=== PATIENT | female | born 1960 | race African-American/Black ===

== ENCOUNTER 2018-12-16 09:55 | Outpatient (CLI) | payer MEDICARE ==
--- NOTE | 2018-12-16 12:00 | MMO ---
Bilateral MAMMO Bilat Screen [facility]E. CLINICAL HISTORY: Patient is 58 years old and is seen for screening. The patient has no family history of breast cancer. The patient has no personal history of cancer. VIEWS: The views performed were: bilateral craniocaudal with tomosynthesis; bilateral mediolateral oblique with tomosynthesis; and right exaggerated craniocaudal. FILMS COMPARED: The present examination has been compared to prior imaging studies performed at [facility] on 11/03/2014, 11/29/2015, 12/13/2016 and 12/15/2017. MAMMOGRAM FINDINGS: There are scattered fibroglandular densities. Finding 1: There are stable benign appearing calcifications seen in both breasts. Finding 2: There is an intramammary lymph node seen in the left breast. There are no suspicious masses, suspicious calcifications, or new areas of architectural distortion. IMPRESSION: THERE IS NO MAMMOGRAPHIC EVIDENCE OF MALIGNANCY. A ROUTINE FOLLOW-UP MAMMOGRAM IN 1 YEAR IS RECOMMENDED. THE RESULTS OF THIS EXAM WERE SENT TO THE PATIENT. ACR BI-RADS Category 2 - Benign finding MAMMOGRAPHY NOTE: 1. A negative mammogram report should not delay a biopsy if a dominant of clinically suspicious mass is present. 2. Approximately 10% to 15% of breast cancers are not detected by mammography. 3. Adenosis and dense breasts may obscure an underlying neoplasm.
== END 2018-12-16 09:56 | disposition home or self-care (01) ==
LOC: BICMAMMO 09:55 → MERGE 10:45
PROVIDERS: ATTEND Student in an Organized Health Care Education/Training Program
DX: Z12.31 Encounter for screening mammogram for malignant neoplasm of breast (principal)
CPT/HCPCS: 77063; 77067

== ENCOUNTER 2018-12-19 13:34 | Observation (INO) | payer MEDICARE ==
[2018-12-19] MEDS ORDERED: Acetaminophen 500 MG TAB ONE (13:59)
--- NOTE | 2018-12-19 14:45 | RAD ---
RADIOGRAPH CHEST 1 VIEW: DATE: 12/19/2018 HISTORY: 58-year-old female with chest pain FINDINGS: The thoracic aorta is tortuous and ectatic. There is no evidence of airspace density, pulmonary edema , or pneumothorax. The lateral costophrenic angles are not effaced. IMPRESSION: 1) No acute pulmonary findings. 2) ectasia of thoracic aorta.
[2018-12-19 14:49] LABS: #Basophils 0.1 thou/uL (0.0-0.2); #Eosinphils 0.2 thou/uL (0.0-0.7); #Lymphocytes 3.7 thou/uL (1.20-3.40); #Monocytes 0.7 thou/uL (0.11-0.59); #Neutrophils 7.3 thou/uL (1.40-6.50); %Basophils 0.5 % (0.0-1.0); %Eosinophils 1.6 % (0.0-10.0); %Lymphocytes 30.8 % (21.0-51.0); %Monocytes 5.6 % (0.0-10.0); %Neutrophils 61.6 % (42.0-75.0); Hemoglobin 15.1 g/dL (12.0-16.0); Mean Corpuscular HGB CONC 33.9 g/dL (32.0-36.0); Mean Corpuscular Volume 97.5 fL (78.0-98.0); Mean Platelet Volume 7.7 fL (7.4-10.4); Platelet Count 378 thou/uL (130-400); RBC Distribution Width 13.6 % (11.5-14.5); Red Blood Cell (RBC) Count 4.56 mill/uL (4.20-5.40); White Blood Cell (WBC) Count 11.9 thou/uL (4.8-10.8)
[2018-12-19 14:59] LABS: ALT (SGPT) 12 U/L (8-55); AST (SGOT) 16 U/L (5-34); Albumin 4.1 g/dL (3.5-5.0); Alkaline Phosphatase 73 U/L (40-150); Anion Gap 17 mmol/L (10-20); BUN (Urea Nitrogen) 20 mg/dL (9.8-20.1); Bilirubin, Total 0.9 mg/dL (0.2-1.2); Calc. Creatinine Clearance 0 mL/min (70-130); Calcium 9.7 mg/dL (7.8-10.44); Carbon Dioxide 27 mmol/L (22-29); Chloride 97 mmol/L (98-107); Estimated GFR-MDRD 47; Globulin 4.3 g/dL (2.4-3.5); Glucose 133 mg/dL (70-105); Potassium 3.2 mmol/L (3.5-5.1); Protein, Total 8.4 g/dL (6.0-8.3); Sodium 138 mmol/L (136-145)
[2018-12-19 15:20] LABS: CKMB 0.7 ng/mL (0-6.6)
[2018-12-19] MEDS ORDERED: Aspirin Chewable 81 MG TAB ONE (16:03)
[2018-12-19] MEDS ORDERED: Sodium Chloride 0.9% 100 ML ONE (16:04)
[2018-12-19] MEDS ORDERED: cefTRIAXone\\ROCEPHIN 1 GM VIAL ONE (16:04)
--- NOTE | 2018-12-19 16:18 | PDOC.FPRHP ---
- History of Present Illness Chief Complaint: Chest pain/Shortness of breath History of Present Illness: 58yo female with hx of HTN and HLD presents to the ED complaining of chest pain and shortness of breath. The patient stated that for the last week she has been suffering from a cough productive of clear mucus, chills, and sneezing. Yesterday she developed body aches, decreased appetite, and chest pain that was worse with coughs. She denies any sick contacts, fevers, or wheezing. Pt denies any history of cardiac disease but does believe she had an echo before to evaluate a murmur but does not recall when or what the results were. ED Course: WBC 11.9, Cr 1.39, Troponin 0.051 --> 0.033. BNP 101.7 1gm rocephin CXR no acute pulmonary process, ectasia of thoracic aorta EKG nml O2 sats of 91% on RA - Allergies/Adverse Reactions Allergies Allergy/AdvReac Type Severity Reaction Status Date / Time No Known Drug Allergies Allergy Verified 12/19/18 20:42 - Home Medications Medication Instructions Recorded Confirmed Type Hydrochlorothiazide 25 mg PO DAILY 12/19/18 12/19/18 History Losartan Potassium [Cozaar] 50 mg PO DAILY 12/19/18 12/19/18 History - History PMHx: HTN, HLD PSHx: Left ankle ORIF FHx: Maternal HTN Social: 30 pack year smoker, occasional alcohol, disabled, - Review of Systems General: reports: fever/chills, weight/appetite/sleep changes (decreased appetite) ENT: reports: other (sneezing) Respiratory: reports: cough, congestion, shortness of breath Cardiovascular: reports: chest pain (with coughing). denies: edema Gastrointestinal: denies: nausea, vomiting, diarrhea Skin: denies: rashes Musculoskeletal: reports: pain (diffuse myalgias) - Vital signs BP: 135/86 HR: 104 RR: 30 Tmax: 100.6 Pox: 91% on RA Wt: 102.6kg - Physical Exam Constitutional: NAD HEENT: normocephalic and atraumatic Neck: supple Chest: other (Tender to palpation of right chest wall) Heart: RRR, pulses present, no edema, other (3/6 holosystolic murmur) Lungs: no respiratory distress, no wheezing -Lungs: Rales in the upper lobes bilaterally, rhonci in lower randolph Abdomen: soft, non-tender, bowel sounds present Musculoskeletal: normal structure, normal tone Neurological: no focal deficit, CN II-XII intact Skin: no rash/lesions Psychiatric: normal mood and affect, good judgment and insight, intact recent and remote memory FMR H&P: Results - Labs Result Diagrams: 12/19/18 14:15 12/19/18 14:15 Lab results: WBC 11.9 thou/uL (4.8-10.8) H 12/19/18 14:15 Hgb 15.1 g/dL (12.0-16.0) 12/19/18 14:15 Hct 44.4 % (36.0-47.0) 12/19/18 14:15 MCV 97.5 fL (78.0-98.0) 12/19/18 14:15 Plt Count 378 thou/uL (130-400) 12/19/18 14:15 Neutrophils % 61.6 % (42.0-75.0) 12/19/18 14:15 Sodium 138 mmol/L (136-145) 12/19/18 14:15 Potassium 3.2 mmol/L (3.5-5.1) L 12/19/18 14:15 Chloride 97 mmol/L (98-107) L 12/19/18 14:15 Carbon Dioxide 27 mmol/L (22-29) 12/19/18 14:15 BUN 20 mg/dL (9.8-20.1) 12/19/18 14:15 Creatinine 1.39 mg/dL (0.6-1.1) H 12/19/18 14:15 Glucose 133 mg/dL (70-105) H 12/19/18 14:15 Lactic Acid 1.1 mmol/L (0.5-2.2) 12/19/18 15:07 Calcium 9.7 mg/dL (7.8-10.44) 12/19/18 14:15 Total Bilirubin 0.9 mg/dL (0.2-1.2) 12/19/18 14:15 AST 16 U/L (5-34) 12/19/18 14:15 ALT 12 U/L (8-55) 12/19/18 14:15 Alkaline Phosphatase 73 U/L (40-150) 12/19/18 14:15 CK-MB (CK-2) 0.7 ng/mL (0-6.6) 12/19/18 14:15 B-Natriuretic Peptide 101.7 pg/mL (0-100) H 12/19/18 14:15 Serum Total Protein 8.4 g/dL (6.0-8.3) H 12/19/18 14:15 Albumin 4.1 g/dL (3.5-5.0) 12/19/18 14:15 - EKG Interpretation EKG: Sinus tachycardia, 104 bpm, normal axis, normal R wave progression, no acute ST or T wave changes - Radiology Interpretation Chest x-ray Status: report reviewed by me (No acute pulmonary findings. Ectasia of the thoracic aorta.) FMR H&P: A/P - Problem List (1) Acute respiratory failure with hypoxemia Current Visit: Yes Status: Acute Code(s): J96.01 - ACUTE RESPIRATORY FAILURE WITH HYPOXIA (2) Community acquired bacterial pneumonia Current Visit: Yes Status: Acute Code(s): J15.9 - UNSPECIFIED BACTERIAL PNEUMONIA (3) Atypical chest pain Current Visit: Yes Status: Acute Code(s): R07.89 - OTHER CHEST PAIN (4) Elevated troponin Current Visit: Yes Status: Acute Code(s): R74.8 - ABNORMAL LEVELS OF OTHER SERUM ENZYMES (5) Leukocytosis (leucocytosis) Current Visit: Yes Status: Acute Code(s): D72.829 - ELEVATED WHITE BLOOD CELL COUNT, UNSPECIFIED (6) Hypertension Current Visit: Yes Status: Acute Code(s): I10 - ESSENTIAL (PRIMARY) HYPERTENSION - Plan Acute hypoxic respiratory failure - 2/2 CAP 1 week of worsening productive cough and chills. O2 sat 91% on RA in ED. WBC of 11.9. - Abx: Azithromycin and Rocephin - PRN tylenol - Prednisone - PRN duonebs - Guiafenesin prn - LR @ 125 - Supplemental O2 to maintain >92% - Trend WBC, procalcitonin ordered Atypical Chest Pain Musculoskeletal vs ACS, elevated serial troponins, BNP 101.7, Hx of holosystolic murmur - Echo ordered for tomorrow - EKG if develops new chest pain - Nitro prn for CP - Telemetry and q4hr vitals Hypertension - Continue home meds Hypokalemia - Potassium 3.2 - Supplement 40 KCl - Trend BMP VTE prophylaxis: enoxaparin 30mg daily Disposition/LOS: Admit: Tele obs Expect LOS: <48hr FMR H&P: Upper Level - Pertinent history 58 yo F w/ PMH of HTN and HLD presents for evalutation of one week history of worsening cough, chills, and increasing SOB. Pt also reports rt sided chest pain over last 24 hours that is worse with deep breaths and coughing. She denies hemoptysis. Denies palpitations. Denies NVDC, diaphoresis. In the ED pts cxr showed NAD; however, she was found to be satting in low 90s on RA with a white count and incidentally elevated troponins. She was given 1LNS and 1gm rocephin. EKG showed sinus tachycardia. - Pertinent findings ROS: Pt reports chills, increasing SOB and productive cough over last week. Rt sided CP. Chills. SOB + BRADY. Otherwise agree with above ROS. PE: Gen: NAD pt resting in bed HEENT: NCAT, PERRLA, EOMI CV: RRR No MRG Respiratory: Scattered crackles and some expiratory wheezes, poor air entry Abd: Soft NTND bsx4 Neuro: No focal deficit Tmax: 100.6 WBC: 11.9 O2 sat: 91 RA RR: 30 - Plan Date/Time: 12/19/18 1617 IRoderick DO, have evaluated this patient and agree with findings/ plan as outlined by sport intern resident. Pertinent changes/additions are listed here. 1) Atypical chest pain: - given history of cough and chills this is likely MSK from strain vs pleurisy - pt had fever on presentation and was SOB + tachycardia - will admit to tele obs trend trops and check echo as pt had elevated BNP as well - cont gentle IVF - intial trop elevated, repeat downtrending 2) CAP: - elevated WBC, tachypnea and fever. - given no focal findings on CXR possible atypical pneumonia - Procal pending - consider repeat am cxr after IVF resuscitation - trend CBC - cont rocephin + azithromycin - wean O2 as tolerated 3) LINDA vs CKD - cont IVF resuscitation - trend 4) HTN: - home meds as BP tolerates 5) HLD: - home meds 6) Hypokalemia: - replace and check Mag Dispo: Stable. Will admit to tele obs and trend trops. From respiratory standpoint pt ok for dc with oral abx. Await echo results.
[2018-12-19] MEDS ORDERED: Azithromycin 500 MG VIAL ONE (16:50)
[2018-12-19 17:59] VITALS: BMI 38.8
[2018-12-19] MEDS ORDERED: Calcium Carbonate 500 MG ChewTAB PO PRN (18:06)
[2018-12-19] MEDS ORDERED: Ondansetron PF 4 MG/2 ML Vial IVP PRN (18:06)
[2018-12-19] MEDS ORDERED: Acetaminophen 325 MG TAB PO PRN (18:06)
[2018-12-19] MEDS ORDERED: Guaifenesin DM 100-10/5 ML UDCUP PO PRN (18:06)
[2018-12-19] MEDS ORDERED: Albuterol Sulfate 1.25 MG/3 ML NEB NEB PRN (18:06)
[2018-12-19] MEDS ORDERED: Ondansetron ODT 4 MG TAB PO PRN (18:06)
[2018-12-19] MEDS ORDERED: predniSONE 20 MG TAB PO SCH (18:06)
[2018-12-19 18:13] LABS: Troponin I 0.033 ng/mL (< 0.028)
--- NOTE | 2018-12-19 20:22 | HP ---
I have examined the patient. I have discussed the case with Dr. Joshua Serna and agreed with his assessment and plan. HISTORY OF PRESENT ILLNESS: Briefly, Ms. Craig is a pleasant 58-year-old black female, who has smoked at least a half a pack of cigarettes per day since the age of 12. She started becoming ill on Friday when she developed a slight cough, unassociated with fever, but some chills. This got progressively worse to the point that she was short of breath by the time she presented to the ER on Friday. She was subsequently admitted for further evaluation of her problem. PHYSICAL EXAMINATION: VITAL SIGNS: She was afebrile with a blood pressure of 132/78, respirations were 22, pulse ox on 2 L was 95%. GENERAL: She is pleasant, awake, and alert, but appears slightly short of breath and does complain of dyspnea. EAR, NOSE, AND THROAT: No erythema or exudate. NECK: Supple. CARDIAC: Heart rhythm is regular. No gallop or murmur noted. LUNGS: There were moist rales heard best in the posterior lung randolph bilaterally. She is not using accessory muscles of respiration, but does appear short of breath. CARDIAC: Her heart rhythm is regular without gallop or murmur. ABDOMEN: Flat and soft. No guarding, rebound, or rigidity. NEUROLOGIC: No focal deficits. EXTREMITIES: No edema. LABORATORY DATA: CBC; white count slightly elevated at 11,900. Her hemoglobin was 15.1, hematocrit 44.4 with an MCV of 97. Her chemistries; sodium is 138, potassium 3.2, chloride 97, bicarb 27, BUN 20, creatinine 1.39, glucose is 133. Liver enzymes are normal. Her troponin is elevated at 0.051, keeping her in the indeterminate range. Chest x-ray shows no acute pulmonary findings. Specifically, there is no evidence of airspace density, pulmonary edema, or pneumothorax. ASSESSMENT: Probable community-acquired pneumonia, likely atypical. PLAN: We will admit the patient, trend her troponins, begin antibiotics and breathing treatments. Job ID: [id number]
[2018-12-19] MEDS ORDERED: Potassium Chloride 20 MEQ TAB PO SCH (20:30)
[2018-12-19] MEDS: Lactated Ringer's 1,000 ML IV SCH (21:03)
[2018-12-20 05:15] LABS: #Lymphocytes 1.2 thou/uL (1.20-3.40); #Monocytes 0.2 thou/uL (0.11-0.59); #Neutrophils 7.8 thou/uL (1.40-6.50); %Eosinophils 0.1 % (0.0-10.0); %Lymphocytes 13.2 % (21.0-51.0); %Monocytes 2.3 % (0.0-10.0); %Neutrophils 84.5 % (42.0-75.0); Hemoglobin 14.2 g/dL (12.0-16.0); Mean Corpuscular HGB CONC 33.8 g/dL (32.0-36.0); Mean Corpuscular Hemoglobin 33.5 pg (27.0-31.0); Mean Corpuscular Volume 99.1 fL (78.0-98.0); Mean Platelet Volume 7.6 fL (7.4-10.4); Platelet Count 350 thou/uL (130-400); RBC Distribution Width 13.7 % (11.5-14.5); Red Blood Cell (RBC) Count 4.22 mill/uL (4.20-5.40); White Blood Cell (WBC) Count 9.2 thou/uL (4.8-10.8)
[2018-12-20] MEDS: Lactated Ringer's 1,000 ML IV SCH ×2 (05:20→16:24)
[2018-12-20 05:34] LABS: Anion Gap 13 mmol/L (10-20); BUN (Urea Nitrogen) 17 mg/dL (9.8-20.1); Calc. Creatinine Clearance 91 mL/min (70-130); Calcium 9.1 mg/dL (7.8-10.44); Carbon Dioxide 27 mmol/L (22-29); Chloride 102 mmol/L (98-107); Estimated GFR-MDRD 62; Glucose 174 mg/dL (70-105); Magnesium 1.4 mg/dL (1.6-2.6); Potassium 4.1 mmol/L (3.5-5.1); Sodium 138 mmol/L (136-145)
--- NOTE | 2018-12-20 06:08 | PDOC.FM ---
- Subjective Subjective: Ms. Girish Craig remains with some dyspnea, cough, and pleuritic chest pain. She smokes 3/4 ppd. - Objective Vital Signs & Weight: Vital Signs (12 hours) Temp Pulse Resp BP BP Pulse Ox 12/20/18 04:12 98.5 F 83 18 138/67 94 L 12/19/18 23:42 98.8 F 95 20 174/53 H 93 L 12/19/18 21:40 86 18 99 12/19/18 19:52 98 12/19/18 19:30 98.3 F 84 20 122/70 96 Weight Weight 102.603 kg I&O: 12/18/18 12/19/18 12/20/18 06:59 06:59 06:59 Intake Total 1000 Balance 1000 Result Diagrams: 12/20/18 04:46 12/20/18 04:46 Phys Exam - Physical Examination Constitutional: NAD HEENT: PERRLA, moist MMs Neck: no JVD Respiratory: no rales, no rhonchi, wheezing present Poor air movement Cardiovascular: RRR, no significant murmur Gastrointestinal: soft, non-tender, positive bowel sounds Musculoskeletal: no edema, pulses present Psychiatric: A&O x 3 Dx/Plan (1) Acute respiratory failure with hypoxemia Code(s): J96.01 - ACUTE RESPIRATORY FAILURE WITH HYPOXIA Status: Acute (2) Atypical chest pain Code(s): R07.89 - OTHER CHEST PAIN Status: Acute (3) Community acquired bacterial pneumonia Code(s): J15.9 - UNSPECIFIED BACTERIAL PNEUMONIA Status: Acute (4) Elevated troponin Code(s): R74.8 - ABNORMAL LEVELS OF OTHER SERUM ENZYMES Status: Acute (5) Hypertension Code(s): I10 - ESSENTIAL (PRIMARY) HYPERTENSION Status: Acute (6) Leukocytosis (leucocytosis) Code(s): D72.829 - ELEVATED WHITE BLOOD CELL COUNT, UNSPECIFIED Status: Acute - Plan Plan: # Atypical chest pain: Pt had fever on presentation and was SOB + tachycardia. Trop downtrended. - given history of cough and chills this is likely MSK from strain vs pleurisy - Pending echo - cont gentle IVF # CAP vs Viral Infection: # Respiratory Failure with Hypoxia Given 3/4 ppd smoking history, speculate COPD might be a contributing factor to respiratory status Elevated WBC, tachypnea and fever. Procal WNL. - given no focal findings on CXR possible atypical pneumonia - consider repeat am cxr after IVF resuscitation - trend CBC - cont rocephin 2/5 + azithromycin 2/3 - steriod pack 5 day course - wean O2 as tolerated # LINDA vs CKD - resolved - cont IVF resuscitation - trend # HTN: - home meds as BP tolerates # HLD: - home meds # Hypokalemia: - replace # Hypomag - replace Dispo: Stable. Will admit to tele obs and trend trops. From respiratory standpoint pt ok for dc with oral abx. Await echo results.
[2018-12-20] MEDS ORDERED: Magnesium 2 GM/50 ML 2 GM in Premix Bag 1 BAG IVPB SCH (06:15)
[2018-12-20] MEDS: predniSONE 20 MG TAB PO SCH (08:01)
[2018-12-20] MEDS: Enoxaparin Sodium 40 MG/0.4 ML SYRINGE SC SCH (08:01)
--- NOTE | 2018-12-20 12:44 | PRG ---
DATE OF SERVICE: 12/20/2018 Ms. Craig feels much better this morning. She is much less short of breath. She did have a very slight elevation of BNP, so we will investigate also with an echo. After she is recovered from her pneumonia, I would suggest pulmonary function studies as well. She was also having some atypical chest pain, which can be investigated further as an outpatient with stress Myoviewing. In the event, clinically today from a pneumonia standpoint, she is improved. She is less short of breath. Her cough is diminished. She remains afebrile. Her white count is dropped to the normal range. Job ID: [id number]
[2018-12-20] MEDS ORDERED: cefTRIAXone\\ROCEPHIN 1 GM in Sodium Chloride 0.9% 100 ML IVPB SCH (16:00)
[2018-12-20] MEDS ORDERED: Azithromycin 500 MG in Sodium Chloride 0.9% 250 ML 250 ML IVPB SCH (17:00)
[2018-12-21 05:31] LABS: #Basophils 0.1 thou/uL (0.0-0.2); #Eosinphils 0.1 thou/uL (0.0-0.7); #Lymphocytes 3.9 thou/uL (1.20-3.40); #Monocytes 0.7 thou/uL (0.11-0.59); #Neutrophils 6.6 thou/uL (1.40-6.50); %Basophils 0.9 % (0.0-1.0); %Eosinophils 0.7 % (0.0-10.0); %Lymphocytes 34.4 % (21.0-51.0); %Monocytes 6.1 % (0.0-10.0); Hemoglobin 13.1 g/dL (12.0-16.0); Mean Corpuscular HGB CONC 33.8 g/dL (32.0-36.0); Mean Corpuscular Hemoglobin 33.5 pg (27.0-31.0); Mean Corpuscular Volume 99.1 fL (78.0-98.0); Mean Platelet Volume 7.8 fL (7.4-10.4); Platelet Count 389 thou/uL (130-400); RBC Distribution Width 13.5 % (11.5-14.5); Red Blood Cell (RBC) Count 3.89 mill/uL (4.20-5.40); White Blood Cell (WBC) Count 11.4 thou/uL (4.8-10.8)
--- NOTE | 2018-12-21 05:41 | PDOC.FM ---
- Subjective Subjective: Pt is doing well this morning. Still endorses mild SOB and right-sided pleuritic chest pain, slightly improved form admission as well as a non- productive cough. She has been ambulating well. Decreased PO intake due to decreased appetite. No fever, chills, n/v, urinary sxs or diarrhea/constipation. - Objective MAR Reviewed: Yes Vital Signs & Weight: Vital Signs (12 hours) Temp Pulse Resp BP BP Pulse Ox 12/21/18 04:45 74 18 176/75 H 96 12/21/18 01:09 79 16 93 L 12/20/18 23:07 98.3 F 80 20 175/76 H 94 L 12/20/18 19:36 98.3 F 80 16 173/71 H 92 L Weight Weight 102.603 kg I&O: 12/19/18 12/20/18 12/21/18 06:59 06:59 06:59 Intake Total 1000 Balance 1000 Result Diagrams: 12/21/18 05:01 12/21/18 05:01 EKG Reviewed by me: Yes (Tele showed NSR) Phys Exam - Physical Examination Constitutional: NAD HEENT: PERRLA, moist MMs Neck: no nodes, supple Respiratory: wheezing present (mild bilateral end-experatory wheezes) Decreased air movement bilaterally Cardiovascular: RRR, no significant murmur, no rub Gastrointestinal: soft, non-tender, no distention, positive bowel sounds Musculoskeletal: no edema, pulses present Neurological: non-focal Psychiatric: normal affect, A&O x 3 Skin: no rash Dx/Plan (1) Atypical chest pain Code(s): R07.89 - OTHER CHEST PAIN Status: Acute (2) Acute respiratory failure with hypoxemia Code(s): J96.01 - ACUTE RESPIRATORY FAILURE WITH HYPOXIA Status: Acute (3) Community acquired bacterial pneumonia Code(s): J15.9 - UNSPECIFIED BACTERIAL PNEUMONIA Status: Acute (4) Hypertension Code(s): I10 - ESSENTIAL (PRIMARY) HYPERTENSION Status: Chronic (5) Hypokalemia Code(s): E87.6 - HYPOKALEMIA Status: Acute - Plan Plan: 58 yo AAF with h/o tobacco abuse, HTN, and HLD who presents with atypical chest pain. 1. Atypical chest pain: - Pt with fever and SOB on presentation + tachycardia. Trop downtrended. EKG WNL. - Given history of cough/chills this is likely MSK from strain vs pleurisy 2/2 respiratory infection - Echo Pending - Will need outpatient stress test once acute respiratory status improved. 2. Acute Hypoxic respiratory failure 2/2 CAP vs Viral Infection: - 3/4 ppd smoking history, speculate COPD might be a contributing factor to respiratory status - White count stable, tachypnea improve, currently afebrile, Procal WNL. - No focal findings on CXR - possible atypical pneumonia - cont rocephin 08/18 + azithromycin 08/16 - will transition to PO doxy and give final dose of azithro prior to d/c - Prednisone 40mg (06/20) - weaned to room air. 3. LINDA vs CKD - Resolved LINDA. Cr 1.10 (1.39 on admit) 4. HTN: - Elevated BP this AM. Will increase Cozaar to 100mg QD. 5. HLD: - home meds 6. Hypomag - replaced. Improved at 1.7 (1.4 previously) 7. Hypokalemia - K 3.4 (from 4.1). Will replace and monitor. Dispo: Stable. Awaiting echo results. From respiratory standpoint pt ok for dc with oral abx. Will need outpatient f/u for stress test and BP monitoring. Addendum - Attending - Attending Attestation Date/Time: 12/22/18 1024 I personally evaluated the patient and discussed the management with Dr. Edwards yesterday morning. I agree with the History, Examination, Assessment and Plan documented above with any addition or exceptions noted below.
[2018-12-21 06:06] LABS: Anion Gap 12 mmol/L (10-20); BUN (Urea Nitrogen) 14 mg/dL (9.8-20.1); Calc. Creatinine Clearance 105 mL/min (70-130); Calcium 8.8 mg/dL (7.8-10.44); Carbon Dioxide 26 mmol/L (22-29); Chloride 104 mmol/L (98-107); Estimated GFR-MDRD 72; Glucose 110 mg/dL (70-105); Potassium 3.4 mmol/L (3.5-5.1); Sodium 139 mmol/L (136-145)
[2018-12-21] MEDS ORDERED: Potassium Chloride 20 MEQ TAB PO SCH (07:00)
[2018-12-21] MEDS: predniSONE 20 MG TAB PO SCH (08:10)
[2018-12-21] MEDS: Enoxaparin Sodium 40 MG/0.4 ML SYRINGE SC SCH (08:11)
[2018-12-21] MEDS ORDERED: Losartan 25 MG TAB PO SCH ×2 (09:00)
[2018-12-21] MEDS ORDERED: Hydrochlorothiazide 25 MG TAB PO SCH (09:00)
[2018-12-21] MEDS ORDERED: Azithromycin 250 MG TAB PO SCH (10:45)
[2018-12-21 12:01] VITALS: BP 172/76; TEMP 98.2
[2018-12-21] MEDS ORDERED: Doxycycline 100 MG CAP PO SCH (21:00)
--- NOTE | 2018-12-22 09:57 | DIS ---
DATE OF ADMISSION: 12/19/2018 DATE OF DISCHARGE: 12/21/2018 RESIDENT: Glenn Edwards MD ADMITTING ATTENDING: Derrick Chirinos MD DISCHARGE ATTENDING: Lucio Luo MD CONSULTS: None. PROCEDURES: Chest x-ray on 12/19/2018, demonstrated no acute cardiopulmonary findings. Echocardiogram, EF 50% to 55% with no structural abnormality. PRIMARY DIAGNOSES: Acute hypoxic respiratory failure secondary to community-acquired pneumonia versus viral infection, atypical chest pain, and acute kidney injury. SECONDARY DIAGNOSES: Hypertension, hyperlipidemia, and tobacco abuse. DISCHARGE MEDICATIONS: 1. Hydrochlorothiazide 25 mg p.o. daily. 2. ProAir inhaler 2 puffs q.4 hours p.r.n. 3. Doxycyline 100 mg p.o. b.i.d. x5 days. 4. Cozaar 100 mg p.o. daily. 5. Prednisone 40 mg p.o. q.a.m. for 4 days. DISCONTINUED MEDICATION: Losartan 50 mg p.o. daily. HISTORY OF PRESENT ILLNESS: Ms. Stout is a pleasant 58-year-old female with past medical history of hypertension and hyperlipidemia, who presented to the ER complaining of chest pain and shortness of breath for one week duration. She endorsed a productive cough of clear mucus, chills, and sneezing. She then developed body aches, decreased appetite, and chest pain that was worsened with cough. She denied any sick contacts, fevers, or wheezing and she does not have any previous cardiac disease history, but has had an echo before for a previous murmur, but she does not recall the results. In the ED, she was given 1 g Rocephin. White blood count was 11.9. Creatinine 1.39. Troponins are slightly elevated at 0.051, which trended down to 0.033. She had a chest x-ray that showed acute pulmonary process and an EKG that was within normal limits. Her O2 saturations were 91% on room air but decreased to the 80s requiring supplemental O2. She was admitted for acute hypoxic respiratory failure secondary to community- acquired pneumonia, placed on azithromycin and Rocephin for antibiotics. She initially required 2 L of O2 to maintain saturations greater than 90%, but this was then weaned down to room air over the next 24 hours. She was admitted to the telemetry floor for monitoring of atypical chest pain. EKG was within normal limits and troponins continue to trend down. Her LINDA resolved with gentle IV fluid hydration. Her blood pressure remained elevated in the 170s/70s and that is why her Cozaar was increased to 100 mg p.o. daily. On the day of discharge, she was ambulating in the martini well without any use of supplemental O2 and states that her shortness of breath and chest pain are markedly improved. Her LINDA resolved with a creatinine improvement to 1.10. In the course of her hospitalization, she also experienced hypokalemia and hypomagnesemia, which were replaced per protocol.She was eager to go home. Discharge plan was discussed with the patient for continuation of doxycycline for a total of 5 days as well as prednisone for a total of 5 days. She completed her azithromycin course inpatient. The patient voiced understanding and agreement with the plan and will follow up with clinic within the next week. Due to her low cardiovascular risk, it was decided that she is not currently a good candidate for stress test due to her acute illness; however, she will need likely outpatient stress test at followup. DISPOSITION: Stable. DISCHARGE INSTRUCTIONS: 1. Location, home. 2. Diet, heart healthy diet. 3. Activity, as tolerated. 4. Follow up, the patient will follow up with Dr. Gamboa in clinic within 1 week. It was discussed with the patient to check blood pressure at home and return to clinic with a log. Job ID: [id number] MTDD
--- NOTE | 2018-12-26 11:04 | EKG ---
Test Reason : SOB/CP Blood Pressure : / mmHG Vent. Rate : 104 BPM Atrial Rate : 104 BPM P-R Int : 130 ms QRS Dur : 074 ms QT Int : 350 ms P-R-T Axes : 029 065 015 degrees QTc Int : 460 ms Sinus tachycardia Otherwise normal ECG Confirmed by GERARDO SAGASTUME ([id number]), continuity editor RENETTA SOLIS ([id number]) on 12/26/2018 11:03:37 AM Referred By: Confirmed By:GERARDO SAGASTUME
== END 2018-12-21 12:45 | disposition home or self-care (01) ==
LOC: ERS 13:34 → 2SW 15:57
PROVIDERS: ADMIT Family Medicine; ATTEND Family Medicine
DX: J15.9 Unspecified bacterial pneumonia (principal); J96.01 Acute respiratory failure with hypoxia; R07.89 Other chest pain; N17.9 Acute kidney failure, unspecified; I10 Essential (primary) hypertension; E78.5 Hyperlipidemia, unspecified; F17.210 Nicotine dependence, cigarettes, uncomplicated; E87.6 Hypokalemia; I77.810 Thoracic aortic ectasia; D72.829 Elevated white blood cell count, unspecified; R79.89 Other specified abnormal findings of blood chemistry; E83.42 Hypomagnesemia; Z79.899 Other long term (current) drug therapy; Z98.890 Other specified postprocedural states
CPT/HCPCS: 71045; 80048 ×2; 80053; 82553; 83605; 83735 ×2; 83880; 84145; 84484 ×2; 85025 ×3; 87040; 90732; 93005; 93306; 94640 ×2; 94760 ×3; 96361 ×3; 96365; 96367 ×2; 96372 ×2; 96376; 99285; G0009; G0378 ×2; 36415; 90471; J0456; J0696; J1650; J3475; J3490; J7050; J7512; J7620

== ENCOUNTER 2019-04-21 07:55 | Inpatient (IN) | payer MEDICARE ==
[2019-04-21 08:38] LABS: Hemoglobin 13.6 g/dL (12.0-16.0); Mean Corpuscular HGB CONC 33.5 g/dL (32.0-36.0); Mean Corpuscular Hemoglobin 33.2 pg (27.0-31.0); Mean Platelet Volume 8.2 fL (7.4-10.4); Platelet Count 223 thou/uL (130-400); RBC Distribution Width 13.5 % (11.5-14.5); Red Blood Cell (RBC) Count 4.09 mill/uL (4.20-5.40); White Blood Cell (WBC) Count 9.9 thou/uL (4.8-10.8)
--- NOTE | 2019-04-21 08:44 | CT ---
CT Brain WO Con: 04/21/2019 8:10 AM CLINICAL HISTORY: AMS. COMPARISON: None. FINDINGS: Hemorrhage: None. Ventricular system: Mild prominence due to ex vacuo dilatation. Cerebral parenchyma: Multifocal encephalomalacia involving watershed distribution of right cerebral h emisphere. This is superimposed upon multifocal mild to moderate chronic microvessel ischemic disease of the cerebral white matter. Midline shift: None. Mass: No mass effect. Calvarium: Normal. Visualized Paranasal sinuses: Scattered mild inflammatory mucosal thickening. IMPRESSION: No acute intracranial hemorrhage or mass effect. Multifocal encephalomalacia, superimposed upon microvascular ischemic disease of the cerebral white m atter.
[2019-04-21 09:05] LABS: ALT (SGPT) 57 U/L (8-55); AST (SGOT) 78 U/L (5-34); Albumin 3.5 g/dL (3.5-5.0); Alkaline Phosphatase 75 U/L (40-110); Anion Gap 18 mmol/L (10-20); BUN (Urea Nitrogen) 36 mg/dL (9.8-20.1); Bilirubin, Total 0.4 mg/dL (0.2-1.2); CK (CPK) 118 U/L (29-168); Calc. Creatinine Clearance 0 mL/min (70-130); Calcium 8.1 mg/dL (7.8-10.44); Carbon Dioxide 21 mmol/L (22-29); Chloride 104 mmol/L (98-107); Estimated GFR-MDRD 28; Globulin 3.3 g/dL (2.4-3.5); Glucose 263 mg/dL (70-105); Lipase 32 U/L (8-78); Potassium 3.7 mmol/L (3.5-5.1); Protein, Total 6.8 g/dL (6.0-8.3); Sodium 139 mmol/L (136-145)
[2019-04-21 09:06] LABS: Band 11 % (5-11); Eosinophils 6 % (0-10); Lymphocytes 31 % (21-51); MDiff Complete? YES; Macrocytosis SLIGHT = 6-15 cells (100X) (0-5/hpf); Monocytes 3 % (0-10); Neutrophil 32 % (42-75); Platelet Morphology Comment Appears Adequate; Polychromasia SLIGHT = 2-3 cells (100X) (0-2/hpf); Reactive Lymphocytes 16 % (0-10)
--- NOTE | 2019-04-21 09:08 | RAD ---
EXAM: Chest one view: HISTORY: Syncopal episode of seizure activity COMPARISON: 12/19/2018 FINDINGS: Minimal increased linear interstitial markings bilaterally but overall stable. Heart size: Within normal limits. Lungs: Clear of acute process. No evidence for pneumonia, pleural effusion, acute edema, or pneumothorax, or other significant acute process. IMPRESSION: No significant acute intrathoracic disease.
[2019-04-21 09:13] LABS: Bacteria/HPF 2+ HPF (None Seen); Bilirubin Negative (Negative); Blood, Urine Trace (Negative); Clarity Turbid (Clear); Glucose, Urine (Dipstick) Normal (Negative); Leukocyte 25 Leu/uL (Negative); Nitrite Negative (Negative); Protein, Urine (Dipstick) 100 mg/dL (Neg-Trace); RBC/HPF 0-3 HPF (0-3); Squamous Epithelial 0-3 HPF (0-3); Urobilinogen Normal mg/dL (Less than 2); WBC/HPF 21-50 HPF (0-3)
[2019-04-21 09:16] LABS: Acetaminophen Less than 6.0 mcg/mL (10.0-30.0); Alcohol Less than 10 mg/dL (Less than 10)
[2019-04-21 09:20] LABS: Salicylate Less than 8.0 mg/dL (15.0-30.0)
[2019-04-21 09:23] LABS: Amphetamine Not Detected (NotDetected); Barbiturates Screen Not Detected (NotDetected); Benzodiazepine Screen Not Detected (NotDetected); Cocaine Metabolite Screen Not Detected (NotDetected); Medtox Control Line Valid? VALID (VALID); Medtox Reader # READER 1; Methadone Not Detected (NotDetected); Methamphetamine Not Detected (NotDetected); Opiate Screen Not Detected (NotDetected); Oxycodone Screen Not Detected (NotDetected); Phencyclidine (PCP) Not Detected (NotDetected); THC/Cannabinoid Screen Not Detected (NotDetected); Tricyclic Screen Not Detected (NotDetected)
[2019-04-21 09:25] LABS: CKMB 0.9 ng/mL (0-6.6)
[2019-04-21] MEDS ORDERED: Enoxaparin Sodium 100 MG/ML SYRINGE ONE (09:48)
[2019-04-21] MEDS ORDERED: cefTRIAXone\\ROCEPHIN 1 GM VIAL ONE (09:48)
--- NOTE | 2019-04-21 10:26 | ULT ---
EXAM: Bilateral lower extremity venous duplex: Deep veins evaluated with color Doppler, spectral analysis, and compression. INDICATIONS: Bilateral lower extremity pain and edema. FINDINGS: Deep veins interrogated include common femoral vein, femoral vein, popliteal vein, and post erior tibial vein. The right lower extremity veins show normal compression and blood flow. Within the left lower extremity, there is thrombus of the left common femoral, femoral and popliteal veins compatible with deep vein thrombosis. IMPRESSION: Evidence of left lower extremity deep vein thrombosis.
[2019-04-21] MEDS ORDERED: Aspirin Chewable 81 MG TAB ONE (10:40)
--- NOTE | 2019-04-21 11:09 | PDOC.FPRHP ---
- History of Present Illness Chief Complaint: syncope, SOB History of Present Illness: Patient is a 59F with PMHx of HTN, HLD, recent hx of LLE DVT that presents after several witnessed episodes of syncope this morning. Per patient she was driving her car this morning when she began to feel dizzy and diaphoretic. She pulled over and put her car in park, and then her daughter witnessed her lose consciousness, make gagging motions, and foaming at the mouth. After she got out of the car, her daughter witnessed another episode where patient lost conciousness and had similar gagging motions and fell to the ground. Daughter denies patient hitting her head. Patient denies that this has ever happened to her before. She reports that she was having intermittent frontal headaches this morning, but have since ceased. She also reports of chest pain this morning, substernal in nature, and characterized it more as someone sitting on her chest instead of actual pain. She also had some SOB where she felt that she had to take deep breaths. Patient has a known hx of DVT LLE for approx 1.5wks. Reportedly saw Dr. Pugh or further imaging, which she was not able to afford. Has not been on anticoagulation. ED Course: 2L NS, rocephin ,324 asa, therapeutic lovenox, bilateral venous doppler - Allergies/Adverse Reactions Allergies Allergy/AdvReac Type Severity Reaction Status Date / Time No Known Drug Allergies Allergy Verified 12/19/18 20:42 - Home Medications Medication Instructions Recorded Confirmed Type Hydrochlorothiazide 25 mg PO DAILY 12/19/18 04/21/19 History Albuterol Sulfate [Proair HFA] 2 puff INH Q4HR PRN #1 inh 12/21/18 04/21/19 Rx Doxycycline [Vibramycin] 100 mg PO BID #10 cap 12/21/18 04/21/19 Rx Losartan [Cozaar] 100 mg PO DAILY #60 tab 12/21/18 04/21/19 Rx predniSONE 40 mg PO QAM-WM #8 tab 12/21/18 04/21/19 Rx - History PMHx:HTN, HLD PSHx: L foot surgery FHx: Children have HTN, no hx of seizures or strokes Social: 1/2ppd smoker since age 12, occasional etoh use, no drug use - Vital signs BP: [113/68] HR: [91] RR: [20] Tmax: [97.6] Pox: [100]% on [2L] Wt: [100.3kg] - Physical Exam Constitutional: NAD, awake, alert and oriented, well developed HEENT: PERRLA, EOMI, grossly normal hearing, MMM Neck: supple, FROM, trachea midline Chest: no-tender to palpation, no lesions Heart: RRR, normal S1/S2 -Heart: left leg slightly swollen compared to right leg -Lungs: poor inspiratory effort in LUIS, though CTA throughout other lung randolph Abdomen: soft, non-tender, bowel sounds present Musculoskeletal: normal structure, normal tone -Musculoskeletal: Left upper thigh tender to palpation; toes cold bilaterally but feet and legs warm to touch with appreciable pedal pulses Neurological: no focal deficit, CN II-XII intact, normal sensation Skin: no rash/lesions, no jaundice Heme/Lymphatic: no unusual bruising or bleeding, no purpura Psychiatric: normal mood and affect, good judgment and insight FMR H&P: Results - Labs Result Diagrams: 04/21/19 08:05 04/21/19 08:05 Lab results: WBC 9.9 thou/uL (4.8-10.8) 04/21/19 08:05 Hgb 13.6 g/dL (12.0-16.0) 04/21/19 08:05 Hct 40.5 % (36.0-47.0) 04/21/19 08:05 MCV 99.0 fL (78.0-98.0) H 04/21/19 08:05 Plt Count 223 thou/uL (130-400) 04/21/19 08:05 Band Neuts % (Manual) 11 % (5-11) 04/21/19 08:05 Sodium 139 mmol/L (136-145) 04/21/19 08:05 Potassium 3.7 mmol/L (3.5-5.1) 04/21/19 08:05 Chloride 104 mmol/L (98-107) 04/21/19 08:05 Carbon Dioxide 21 mmol/L (22-29) L 04/21/19 08:05 BUN 36 mg/dL (9.8-20.1) H 04/21/19 08:05 Creatinine 2.21 mg/dL (0.6-1.1) H 04/21/19 08:05 Glucose 263 mg/dL (70-105) H 04/21/19 08:05 Lactic Acid 4.0 mmol/L (0.5-2.2) H 04/21/19 08:22 Calcium 8.1 mg/dL (7.8-10.44) 04/21/19 08:05 Total Bilirubin 0.4 mg/dL (0.2-1.2) 04/21/19 08:05 AST 78 U/L (5-34) H 04/21/19 08:05 ALT 57 U/L (8-55) H 04/21/19 08:05 Alkaline Phosphatase 75 U/L (40-110) 04/21/19 08:05 Creatine Kinase 118 U/L (29-168) 04/21/19 08:05 CK-MB (CK-2) 0.9 ng/mL (0-6.6) 04/21/19 08:05 B-Natriuretic Peptide 20.4 pg/mL (0-100) 04/21/19 08:22 Serum Total Protein 6.8 g/dL (6.0-8.3) 04/21/19 08:05 Albumin 3.5 g/dL (3.5-5.0) 04/21/19 08:05 Lipase 32 U/L (8-78) 04/21/19 08:05 Urine Ketones Negative mg/dL (Negative) 04/21/19 08:53 Urine Blood Trace (Negative) A 04/21/19 08:53 Urine Nitrite Negative (Negative) 04/21/19 08:53 Ur Leukocyte Esterase 25 Da/uL (Negative) 04/21/19 08:53 Urine RBC 0-3 HPF (0-3) 04/21/19 08:53 Urine WBC 21-50 HPF (0-3) A 04/21/19 08:53 Ur Squamous Epith Cells 0-3 HPF (0-3) 04/21/19 08:53 Urine Bacteria 2+ HPF (None Seen) A 04/21/19 08:53 - EKG Interpretation EKG: Normal sinus rhythm, inverted T waves III, aVF - Radiology Interpretation CT scan - head Status: report reviewed by me (multifocal encephalomalacia, microvascular ischemic disease of the cerebral white matter) Chest x-ray Status: report reviewed by me (Negative for acute process) FMR H&P: A/P - Problem List (1) Syncope and collapse Current Visit: Yes Status: Acute Code(s): R55 - SYNCOPE AND COLLAPSE (2) Lactic acidosis Current Visit: Yes Status: Acute Code(s): E87.2 - ACIDOSIS (3) LINDA (acute kidney injury) Current Visit: Yes Status: Acute Code(s): N17.9 - ACUTE KIDNEY FAILURE, UNSPECIFIED (4) UTI (urinary tract infection) Current Visit: Yes Status: Acute (5) D-dimer, elevated Current Visit: Yes Status: Acute Code(s): R79.89 - OTHER SPECIFIED ABNORMAL FINDINGS OF BLOOD CHEMISTRY (6) Hyperglycemia Current Visit: Yes Status: Acute Code(s): R73.9 - HYPERGLYCEMIA, UNSPECIFIED (7) Atypical chest pain Current Visit: No Status: Acute Code(s): R07.89 - OTHER CHEST PAIN (8) HLD (hyperlipidemia) Current Visit: Yes Status: Acute Code(s): E78.5 - HYPERLIPIDEMIA, UNSPECIFIED (9) Hypertension Current Visit: No Status: Chronic Code(s): I10 - ESSENTIAL (PRIMARY) HYPERTENSION (10) Sepsis Current Visit: Yes Status: Acute Code(s): A41.9 - SEPSIS, UNSPECIFIED ORGANISM - Plan Patient is a 59F with PMHx of HTN, HLD admitted for sepsis due to UTI, lactic acidosis, LINDA, r/o PE, and syncope. #Sepsis due to UTI -UA +WBC, +Bacteria, +LE -received vanc and rocephin the ED -BP 61/45 and pulse 101 in ED before fluids -patient's BP has responded well to fluids in the ED -will continue maintenance fluids -will continue rocephin -urine culture ordered, will follow #Syncope -patient had two witnessed episodes of syncope -had low BP recorded in the ED -unlikely orthostatic hypotension as patient had one episode of syncope while she was sitting in a car -possibly due to severe dehydration and low BP -possibly due to an arrhythmia, will monitor on tele overnight to assess for arrhythmias -possibly due to PE, will f/u V/Q scan #R/O PE, hx of DVT LLE x1.5wks, atypical chest pain -patient complaining of SOB and feeling of chest pain like someone is sitting on her chest -EKG nsr, t wave inversion in III and aVF -hx of DVT in LLE -ED could not get CTA due to patient's GFR -V/Q scan ordered, will follow -patient on therapeutic lovenox -oxgen supplementation as needed #LINDA -creatinine 2.21, GFR 28 -Baseline -Patient's BP was low, and has been responsive to fluids; likely a dehydration component -patient on maintenance fluids -will continue to monitor #Lactic Acidosis -Lactate 4.0 -has already downtrended to 1.7 s/p fluids -patient has LINDA -likely due to dehydration, will continue to monitor #Hyperglycemia -blood glucose 263 -unsure if given amp of D50 via EMS -A1C pending #HTN -low BP in the ED -will hold home meds for now #HLD -will continue home meds DVT ppx: therapeutic lovenox for known DVT Diet: HH Code: Full Dispo: inpatient for IVF, IV abx for UTI, tele monitoring for arrhythmias, V/Q scan to assess for PE FMR H&P: Upper Level - Pertinent history 59 yo F w/ h/o DVT presents for syncopal episode. Found to have low BP in ED and pos venous duplex as well as elevated Dimer. CTA chest deferred for elevated creatanine. BPs initially 60/40. Found to have elevated LFTs, linda and elevated troponins on presentation. She was treated for presumptive PE with therapeutic lovenox. Additionally, found to have UTI by UA. One exam pt resting comfrotably in bed in NAD. Normal respiratory pattern and normal lung exam. Vitals stable and O2 meghan 100% on 2L NC. - Plan Date/Time: 04/21/19 1101 IRoderick DO, have evaluated this patient and agree with findings/ plan as outlined by internet marketing specialist resident. Pertinent changes/additions are listed here. Was present with Heel Seater Physician for assessment and plan evaluation and agree with above findings. Overall, 59 yo F w/ known DVTs presents for syncopal episode and has numerous lab abnormalities which could be explained by likely PE. With UTI and other vitals technically meets sepsis criteria. Will admit to ip for cont workup. She was given Th lovenox in ED. Will continue. VQ scan to evaluate for PE given elevated Cr/CT deferral. Cont IV abx. Dispo: Guarded, will await VQ scan results and cont rx for PE with Th Lovenox. Addendum - Attending - Attending Attestation Date/Time: 04/21/19 I personally evaluated the patient and discussed the management with Dr. Rey I agree with the History, Examination, Assessment and Plan documented above with any addition or exceptions noted below- . 59 yo female with Hx of HTN, HLD that presents after several witnessed episodes of syncope this morning. Per patient she was driving her car this morning when she began to feel dizzy and diaphoretic. She pulled over and put her car in park , and then her daughter witnessed her lose consciousness, make gagging motions, and foaming at the mouth. After she got out of the car, her daughter witnessed another episode where patient lost conciousness and had similar gagging motions and fell to the ground. Daughter denies patient hitting her head. Patient denies that this has ever happened to her before. She reports that she was having intermittent frontal headaches this morning, but have since ceased. She also reports of chest pain this morning, substernal in nature, and characterized it more as someone sitting on her chest instead of actual pain. She also had some SOB where she felt that she had to take deep breaths. PH/PSH/ Meds/SH reviewed and agree with resident's documentation. Afebrile VSS Exam repeated by me and agree with resident's findings. Labs: WBC=9.9, H/H= 13.6/40.5 , Qf=897, K=4.3, BUN/Cr= 36/2.21, AST/ALT= 78/57, BNP=20.4, trop=0.056, lactic acid=4.0, U/A 21-50 WBC; 2+bacteria. A/P: 1) Syncope- uncertain etiology; admit to tele and monitor for arrhythmias, 2) LINDA- continue IVF hydration; recheck n AM, 3) UTI- continue IV abx and await urine culture. 4) Indeterminate troponins - check serial enzymes. 5) Left DVT- continue therapeutic lovenox. Plan for VQ scan if Cr still elevated versus CT angio.
[2019-04-21 11:44] LABS: Lactic Acid 1.7 mmol/L (0.5-2.2)
[2019-04-21] MEDS ORDERED: Ondansetron ODT 4 MG TAB PO PRN (11:59)
[2019-04-21] MEDS ORDERED: Famotidine 20 MG TAB PO PRN ×2 (11:59→14:53)
[2019-04-21 14:01] LABS: Troponin I 0.668 ng/mL (< 0.028)
--- NOTE | 2019-04-21 14:33 | NM ---
NUCLEAR MEDICINE VENTILATION PERFUSION SCAN: (V/Q SCAN) DATE: 04/21/2019. HISTORY: A 59-year-old female with elevated D-dimer. Dr. Santos reported the positive finding of pulmonary thromboembolism by telephone to nurse Frances michael RN, at 2:22 p.m. on 04/21/2019. TECHNIQUE: Xenon-133 gas dose: 19.0 mCi. [id number] dose: 6.6 mCi. The patient inhaled Xenon-133 gas, and dynamic ventilation scintigraphy was performed. [id number] was injected IV, and multiple perfusion scintigraphic views were obtained. FINDINGS: There is a large VQ mismatch involving the majority of the volume of the right upper lobe: entire ant erior segment and apical segment (sparing of the posterior segment: a large perfusion defect, but wit h normal ventilation in that location. Much smaller wedge-shaped perfusion defect at the anterior base of left lower lobe, probably involvin g the lingula. IMPRESSION: High probability for pulmonary thromboembolism. This includes a large region of pulmonary nonperfusi on involving majority of the volume of the right upper lobe. CODE CR JN R POS: TPC
[2019-04-21 14:53] VITALS: BMI 37.9
[2019-04-21] MEDS: Nicotine 14 MG PATCH TD SCH (15:09)
[2019-04-21] MEDS: Lactated Ringer's 1,000 ML IV SCH ×2 (15:27→20:47)
[2019-04-21 15:42] LABS: Actual Bicarbonate (HCO3a) 15.8 mEq/L (22-28); Base Excess (BEa) -7.5 mEq/L (-2.0 to +3.0); CO2 Tension 26.7 mmHg (35.0-45.0); Calcium, Ionized 1.08 mmol/L (1.12-1.30); Carboxyhemoglobin (COHb) 1.9 gm% (0.0-3.0); Hemoglobin (Hb) 13.8 g/dL (12.0-16.0); O2 Tension (PaO2) 89.1 mmHg (80.0-100.0); Potassium - ABG Lab 3.84 mmol/L (3.70-5.30); pH, Arterial 7.39 (7.35-7.45)
[2019-04-21 15:46] LABS: ALV-art Gradient 27.255 (0-20); Puncture Site RRA
[2019-04-21 16:30] LABS: Troponin I 0.874 ng/mL (< 0.028)
[2019-04-21 16:52] LABS: Hemoglobin A1c 6.2 % (4.0-6.0)
[2019-04-21 20:26] LABS: Troponin I 0.923 ng/mL (< 0.028)
[2019-04-21] MEDS: Enoxaparin Sodium 100 MG/ML SYRINGE SC SCH (20:47)
[2019-04-21 22:28] LABS: Critical Call Chem Troponin I RESULT DECREASING
[2019-04-21 22:47] LABS: CKMB 4.7 ng/mL (0-6.6)
[2019-04-22] MEDS: Lactated Ringer's 1,000 ML IV SCH ×4 (00:37→23:50)
[2019-04-22 01:19] LABS: Critical Call Chem Troponin I RESULT DECREASING
[2019-04-22 05:51] LABS: #Basophils 0.1 thou/uL (0.0-0.2); #Eosinphils 0.3 thou/uL (0.0-0.7); #Lymphocytes 3.1 thou/uL (1.20-3.40); #Monocytes 0.4 thou/uL (0.11-0.59); #Neutrophils 2.7 thou/uL (1.40-6.50); %Basophils 1.2 % (0.0-1.0); %Eosinophils 4.2 % (0.0-10.0); %Lymphocytes 47.7 % (21.0-51.0); %Monocytes 5.7 % (0.0-10.0); %Neutrophils 41.2 % (42.0-75.0); Hemoglobin 12.4 g/dL (12.0-16.0); Mean Corpuscular HGB CONC 33.4 g/dL (32.0-36.0); Mean Corpuscular Hemoglobin 32.5 pg (27.0-31.0); Mean Corpuscular Volume 97.4 fL (78.0-98.0); Mean Platelet Volume 8.2 fL (7.4-10.4); Platelet Count 241 thou/uL (130-400); RBC Distribution Width 13.5 % (11.5-14.5); Red Blood Cell (RBC) Count 3.81 mill/uL (4.20-5.40); White Blood Cell (WBC) Count 6.6 thou/uL (4.8-10.8)
--- NOTE | 2019-04-22 06:06 | PDOC.FM ---
- Subjective Subjective: Patient doing well this morning. Discussed V/Q scan findings, elevated troponins. Patient denies chest pain or sob this morning, reports she is feeling well. Discussed medical management for PE, patient agreeable to current plan of care. - Objective Vital Signs & Weight: Vital Signs (12 hours) Temp Pulse Resp BP Pulse Ox 04/22/19 03:40 97.7 F 84 16 141/70 H 95 04/22/19 00:00 97.8 F 85 16 102/54 L 94 L 04/21/19 19:40 97.9 F 91 16 126/72 97 Weight Weight 100.244 kg I&O: 04/20/19 04/21/19 04/22/19 06:59 06:59 06:59 Intake Total 300 Balance 300 Result Diagrams: 04/22/19 05:33 04/22/19 05:33 Phys Exam - Physical Examination Constitutional: NAD HEENT: moist MMs, sclera anicteric Neck: supple, full ROM poor inspiratory effort, lung sounds L>R Cardiovascular: RRR, no significant murmur Gastrointestinal: soft, non-tender Musculoskeletal: pulses present Neurological: normal sensation, moves all 4 limbs Psychiatric: normal affect, A&O x 3 Dx/Plan (1) Syncope and collapse Code(s): R55 - SYNCOPE AND COLLAPSE Status: Acute (2) Lactic acidosis Code(s): E87.2 - ACIDOSIS Status: Acute (3) LINDA (acute kidney injury) Code(s): N17.9 - ACUTE KIDNEY FAILURE, UNSPECIFIED Status: Acute (4) UTI (urinary tract infection) Status: Acute (5) D-dimer, elevated Code(s): R79.89 - OTHER SPECIFIED ABNORMAL FINDINGS OF BLOOD CHEMISTRY Status : Acute (6) Hyperglycemia Code(s): R73.9 - HYPERGLYCEMIA, UNSPECIFIED Status: Acute (7) Atypical chest pain Code(s): R07.89 - OTHER CHEST PAIN Status: Acute (8) HLD (hyperlipidemia) Code(s): E78.5 - HYPERLIPIDEMIA, UNSPECIFIED Status: Acute (9) Hypertension Code(s): I10 - ESSENTIAL (PRIMARY) HYPERTENSION Status: Chronic (10) Sepsis Code(s): A41.9 - SEPSIS, UNSPECIFIED ORGANISM Status: Acute - Plan Plan: Patient is a 59F with PMHx of HTN, HLD admitted for sepsis due to UTI, lactic acidosis, LINDA, r/o PE, and syncope. #Syncope -patient had two witnessed episodes of syncope -had low BP recorded in the ED, BP stabilized overnight with fluids -unlikely orthostatic hypotension -possibly due to severe dehydration and low BP -possibly due to an arrhythmia; patient had sinus 70s-90s overnight, 4 beats of asymptomatic v tach and 7 beats wide complex tachycardia -likely due to PE as evidenced on V/Q scan #PE, hx of DVT LLE x1.5wks -patient complained of SOB and feeling of chest pain like someone is sitting on her chest in ED -EKG nsr, t wave inversion in III and aVF -hx of DVT in LLE x 1.5 wk -ED could not get CTA due to patient's GFR -V/Q scan: large VQ mismatch involving the majority of the volume of the right upper lobe, entire anterior and apical segments, small wedge shaped perfusion defect anterior base of LLL likely involving the lingula -continue therapeutic lovenox -patient's oxygen saturation 94-97% on RA overnight -consider pulm consult today #NSTEMI -trop 0.056>0.668>0.874>0.923>0.719>0.567 -patient had PE on V/Q scan, likely causing NSTEMI -trops downtrending -last echo december 2018: EF 50-55%, normal L atrium, normal L ventricular size, [id number] aortic regurgitation, mild tricuspid regurgitation #LINDA -creatinine 2.21, GFR 28> creat 1.42 with fluids -Still not at baseline, but improving -Patient's BP was low, and has been responsive to fluids; likely a dehydration component -patient on maintenance fluids, continue -will continue to monitor #Lactic Acidosis, resolved -Lactate 4.0 > 1.7 -patient had LINDA -likely due to dehydration, will continue to monitor #Hyperglycemia -blood glucose 263 in ED -unsure if given amp of D50 via EMS -A1C 6.2 #HTN -BP 140s/70s-80s this morning -restart patient's home bp meds #HLD -will continue home meds #Sepsis due to UTI, resolved -UA +WBC, +Bacteria, +LE -received vanc and rocephin the ED -BP 61/45 and pulse 101 in ED before fluids -patient's BP has been 102-141/54-70 overnight, pulse 83-91 and afebrile -will continue maintenance fluids -will continue rocephin -urine culture ordered, will follow DVT ppx: therapeutic lovenox for known DVT Diet: HH Code: Full Dispo: inpatient for IVF, IV abx for UTI, tele monitoring for arrhythmias, V/Q scan to assess for PE Addendum - Attending - Attending Attestation Date/Time: 04/22/19 1115 I personally evaluated the patient and discussed the management with Dr. Rey I agree with the History, Examination, Assessment and Plan documented above with any addition or exceptions noted below - Patient denies any complaints. Denies any further weakness. Afebrile VSS. A/P: 1) Syncope- no further episodes - most likely secondary to submassive PE or dysrhythmia - has had several beats of V-tach. Continue lovenox. Will consult EP. Echo ordered to evaluate for right heart strain. 2) L DVT with PE- continue lovenox. 3) V-tach - consult EP. 4) LINDA- improved; continue IVF.
[2019-04-22 06:09] LABS: Lactic Acid 1.5 mmol/L (0.5-2.2)
[2019-04-22 06:16] LABS: ALT (SGPT) 42 U/L (8-55); AST (SGOT) 42 U/L (5-34); Albumin 3.4 g/dL (3.5-5.0); Alkaline Phosphatase 71 U/L (40-110); Anion Gap 13 mmol/L (10-20); BUN (Urea Nitrogen) 26 mg/dL (9.8-20.1); Bilirubin, Total 0.3 mg/dL (0.2-1.2); Calc. Creatinine Clearance 68 mL/min (70-130); Calcium 8.2 mg/dL (7.8-10.44); Carbon Dioxide 21 mmol/L (22-29); Chloride 110 mmol/L (98-107); Estimated GFR-MDRD 46; Globulin 3.1 g/dL (2.4-3.5); Glucose 127 mg/dL (70-105); Potassium 3.7 mmol/L (3.5-5.1); Protein, Total 6.5 g/dL (6.0-8.3); Sodium 140 mmol/L (136-145)
[2019-04-22] MEDS: Enoxaparin Sodium 100 MG/ML SYRINGE SC SCH ×2 (08:24→21:27)
[2019-04-22] MEDS: Losartan 25 MG TAB PO SCH (10:00)
[2019-04-22] MEDS: Hydrochlorothiazide 25 MG TAB PO SCH (10:00)
[2019-04-22] MEDS: cefTRIAXone\\ROCEPHIN 1 GM in Sodium Chloride 0.9% 100 ML IVPB SCH (10:03)
[2019-04-22] MEDS: Nicotine 14 MG PATCH TD SCH (12:56)
--- NOTE | 2019-04-22 17:19 | EKG ---
Test Reason : Blood Pressure : / mmHG Vent. Rate : 085 BPM Atrial Rate : 085 BPM P-R Int : 174 ms QRS Dur : 066 ms QT Int : 370 ms P-R-T Axes : 058 079 057 degrees QTc Int : 440 ms Normal sinus rhythm Low voltage QRS Cannot rule out Anterior infarct , age undetermined Nonspecific ST-T changes Abnormal ECG Confirmed by DR. Lucero HAM (3) on 04/22/2019 5:19:16 PM Referred By: LUCHO Confirmed By:DR. Lucero HAM
[2019-04-22] MEDS: Acetaminophen 325 MG TAB PO PRN (17:47)
--- NOTE | 2019-04-22 18:58 | CON ---
DATE OF CONSULTATION: 04/22/2019 HISTORY OF PRESENT ILLNESS: I am seeing Ms. 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 Her problems are; 1. Syncopal spell. 2. Newly found pulmonary embolism and DVT with V/Q scan from 04/21/2019 shows high probability of thromboembolism in the right upper lobe anterior segment and apical segment. 3. Five-beat nonsustained ventricular tachycardia. 4. History of smoking. 5. Hypertension and hyperlipidemia. ALLERGIES: NONE NOTED. MEDICATIONS: At home included; 1. Hydrochlorothiazide. 2. Albuterol. 3. Doxycycline. 4. Losartan. 5. Prednisone. SUBJECTIVE: Ms. Stout is here due to an episode of syncope. She states she started feeling poorly. This morning, she drove to her daughter. She complained of some chest tightness sensation. She drove to her daughter and then, they were planning to go to the ER, but then she was again feeling dizzy and diaphoretic. Stopped the car and then passed out. She had gagging motions, foaming in the mouth, which episode again recurred after she got out of the car. She fell to the ground at that time. The patient denies hitting her head. This is the first time ever she did report some frontal headaches this morning. Rest of 12-point review of system otherwise unremarkable. PAST MEDICAL HISTORY: Past history is significant for a recently found DVT left lower extremity for about one and half weeks and she was not on anticoagulation. Denies history of heart disease or heart attacks. SOCIAL HISTORY: The patient is a smoker. Denies EtOH or drug abuse. FAMILY HISTORY: Significant for she is having hypertension. No history of seizure or strokes. OBJECTIVE DATA: VITAL SIGNS: Blood pressure was initially 113/68, heart rate 91, respirations 20, and temperature 97.6 degrees Fahrenheit. GENERAL: Alert and oriented woman, in no apparent distress with elevated BMI. NECK: Supple. Jugular veins not distended. CHEST: Coarse without crackles. HEART: Sounds are regular rate and rhythm. No murmur or gallop. ABDOMEN: Benign bowel sounds positive. No hepatomegaly. No masses are felt. EXTREMITIES: Lower extremities without edema, clubbing, or cyanosis. Pulses are adequate. NEUROLOGIC: The patient is nonfocal. MUSCULOSKELETAL: Without joint swelling or deformity. SKIN: Without rash. DATABASE: EKG is reviewed, initially revealing sinus rhythm, rate of 94 beats per minute. Inferior Q-waves. T-wave motions inferiorly are noted. Nonspecific ST -T changes laterally. Preliminary 2D echo reveals preserved LVEF and mild LVH. Teich region suggestive of LVEF of 57%, mild AI, and [id number] elevated pulmonary pressures. LABORATORY DATA: White cell count is 6.6, hemoglobin 12.4, and platelet counts are 241. Sodium 140, potassium 3.7, BUN is 26, and creatinine is 1.42. Troponin level was 0.9, 0.7, and 0.56 consecutively. BNP is 20. Blood gas showing the pH of 7.39, pCO2 of 26, and pO2 of 89. AA gradient is 27. Brain CT was multifocal encephalomalacia superimposed upon microvascular ischemic changes. No hemorrhage or mass. V/Q scan as noted above. Positive for right upper quarter pulmonary embolism. Venogram in the lower extremities suggestive of left lower extremity deep vein thrombosis. ASSESSMENT AND PLAN: Ms. Stout is a 59-year-old woman, who has a history of hypertension, hyperlipidemia, and smoking, no prior cardiac disease, presented with first episode of syncopal spell. She also had preceding chest tightness sensation. She was diagnosed with a deep venous thrombosis and pulmonary embolism. She had a 5-beat nonsustained VT run by tele-monitoring. My impression regarding her syncope, that although the exact etiology is difficult to pinpoint, but the most likely related to the acute pulmonary embolism. Clearly reflexive hypo-tension is possible cause. Sustained ventricular arrhythmias difficult to rule out. She has elevated troponins, which could be related to her pulmonary embolism less likely, but possibly to ischemic heart disease. Chest tightness also could relate to both. Although the preserved LVEF, myocardial ischemia is reasonable to rule out. My plan would be at this point; Initiate anticoagulation as per primary team. She may benefit from a nuclear darien-stress testing in the near future. Consider further rhtyhm monitoring with outpatient monitor. At this time, I do not think EP study would be warranted and device implant potentially could increase her risk hence the related need for interrupted anticoagulation. Thank you for the consult. Job ID: [id number] [id number]
[2019-04-22] MEDS: Atorvastatin Calcium 40 MG TAB PO SCH (21:27)
[2019-04-23] MEDS: Acetaminophen 325 MG TAB PO PRN (03:29)
--- NOTE | 2019-04-23 05:43 | PDOC.FM ---
- Subjective Subjective: Patient doing well this morning. Reports she had a headache last night that was relieved with tylenol. Spoke with Dr. Tolbert yesterday and he plans for a stress test today, patient agreeable with plan of care. Patient denies cp, sob, or current headache. - Objective Vital Signs & Weight: Vital Signs (12 hours) Temp Pulse Resp BP Pulse Ox 04/23/19 04:15 175/86 H 04/23/19 03:31 97.9 F 67 18 194/82 H 99 04/22/19 23:46 98.6 F 75 20 182/69 H 93 L 04/22/19 19:32 98.5 F 81 16 151/87 H 91 L Weight Weight 100.244 kg I&O: 04/21/19 04/22/19 04/23/19 06:59 06:59 06:59 Intake Total 300 5320 Balance 300 5320 Result Diagrams: 04/22/19 05:33 04/23/19 09:48 Phys Exam - Physical Examination Constitutional: NAD HEENT: moist MMs, sclera anicteric Neck: supple, full ROM improved inspiratory effort throughout L>R Cardiovascular: RRR, no significant murmur Gastrointestinal: soft, non-tender Musculoskeletal: pulses present Neurological: normal sensation, moves all 4 limbs Psychiatric: normal affect, A&O x 3 Skin: no rash, normal turgor Dx/Plan (1) Syncope and collapse Code(s): R55 - SYNCOPE AND COLLAPSE Status: Acute (2) Lactic acidosis Code(s): E87.2 - ACIDOSIS Status: Acute (3) LINDA (acute kidney injury) Code(s): N17.9 - ACUTE KIDNEY FAILURE, UNSPECIFIED Status: Acute (4) UTI (urinary tract infection) Status: Acute (5) D-dimer, elevated Code(s): R79.89 - OTHER SPECIFIED ABNORMAL FINDINGS OF BLOOD CHEMISTRY Status : Acute (6) Hyperglycemia Code(s): R73.9 - HYPERGLYCEMIA, UNSPECIFIED Status: Acute (7) Atypical chest pain Code(s): R07.89 - OTHER CHEST PAIN Status: Acute (8) HLD (hyperlipidemia) Code(s): E78.5 - HYPERLIPIDEMIA, UNSPECIFIED Status: Acute (9) Hypertension Code(s): I10 - ESSENTIAL (PRIMARY) HYPERTENSION Status: Chronic (10) Sepsis Code(s): A41.9 - SEPSIS, UNSPECIFIED ORGANISM Status: Acute - Plan Plan: Patient is a 59F with PMHx of HTN, HLD admitted for sepsis due to UTI, lactic acidosis, LINDA, r/o PE, and syncope. #Syncope -patient had two witnessed episodes of syncope -had low BP recorded in the ED, BP stabilized overnight with fluids -unlikely orthostatic hypotension -possibly due to severe dehydration and low BP -possibly due to an arrhythmia -EP evaluated 04/23, appreciate recs; rec stress test with possible monitoring with outpatient study -likely due to PE as evidenced on V/Q scan #PE, hx of DVT LLE x1.5wks -patient complained of SOB and feeling of chest pain like someone is sitting on her chest in ED -EKG nsr, t wave inversion in III and aVF -hx of DVT in LLE x 1.5 wk -ED could not get CTA due to patient's GFR -V/Q scan: large VQ mismatch involving the majority of the volume of the right upper lobe, entire anterior and apical segments, small wedge shaped perfusion defect anterior base of LLL likely involving the lingula -continue therapeutic lovenox -patient's oxygen saturation 93-99% on RA overnight #NSTEMI -trop 0.056>0.668>0.874>0.923>0.719>0.567 -patient had PE on V/Q scan, likely causing NSTEMI -trops downtrending -last echo december 2018: EF 50-55%, normal L atrium, normal L ventricular size, [id number] aortic regurgitation, mild tricuspid regurgitation -echo: EF 50-55% with EA flow reversal suggestive of diastolic dysfunction, mild mitral regurgitation, sclerotic aortic valve, moderate aortic regurgitation , mild tricuspid regurgitation -cards consulted, appreciate recs -anticipate stress test today #LINDA -creatinine 2.21, GFR 28> creat 1.42 with fluids -Still not at baseline, but improving -Patient's BP was low, and has been responsive to fluids; likely a dehydration component -patient on maintenance fluids, continue -will continue to monitor #HTN -BP 175-194/69-86 overnight -patient reported headache last night; pain may be a component of elevated BP -patient is on home meds -decreased fluids to 75 -hydralazine prn, decrease LR #HLD -will continue home meds #Lactic Acidosis, resolved -Lactate 4.0 > 1.7 -patient had LINDA -likely due to dehydration, will continue to monitor #Sepsis due to UTI, resolved -UA +WBC, +Bacteria, +LE -received vanc and rocephin the ED -BP 61/45 and pulse 101 in ED before fluids -will continue maintenance fluids -will continue rocephin for UTI, today is day 3 -urine culture ordered, ngtd #Hyperglycemia, resolved -blood glucose 263 in ED -unsure if given amp of D50 via EMS -A1C 6.2 DVT ppx: therapeutic lovenox for known DVT/PE Diet: NPO for stress test Code: Full Dispo: inpatient for IVF, IV abx for UTI, tele monitoring for arrhythmias, stress test today Addendum - Attending - Attending Attestation Date/Time: 04/23/19 1120 I personally evaluated the patient and discussed the management with Dr. Rey. I agree with the History, Examination, Assessment and Plan documented above with any addition or exceptions noted below. Likely stress today if v/q scan does not interfere. No symptoms this AM. Transition to oral agent pending results of stress.
[2019-04-23] MEDS ORDERED: Lactated Ringer's 1,000 ML IV SCH (05:47)
[2019-04-23] MEDS: Hydrochlorothiazide 25 MG TAB PO SCH (10:06)
[2019-04-23] MEDS: Enoxaparin Sodium 100 MG/ML SYRINGE SC SCH ×2 (10:07→20:59)
[2019-04-23] MEDS: Losartan 25 MG TAB PO SCH (10:07)
[2019-04-23 10:16] LABS: ALT (SGPT) 35 U/L (8-55); AST (SGOT) 30 U/L (5-34); Albumin 3.8 g/dL (3.5-5.0); Alkaline Phosphatase 78 U/L (40-110); Anion Gap 13 mmol/L (10-20); BUN (Urea Nitrogen) 15 mg/dL (9.8-20.1); Bilirubin, Total 0.6 mg/dL (0.2-1.2); Calc. Creatinine Clearance 84 mL/min (70-130); Carbon Dioxide 26 mmol/L (22-29); Chloride 106 mmol/L (98-107); Estimated GFR-MDRD 59; Globulin 3.4 g/dL (2.4-3.5); Glucose 103 mg/dL (70-105); Potassium 3.8 mmol/L (3.5-5.1); Protein, Total 7.2 g/dL (6.0-8.3); Sodium 141 mmol/L (136-145)
[2019-04-23] MEDS: cefTRIAXone\\ROCEPHIN 1 GM in Sodium Chloride 0.9% 100 ML IVPB SCH (11:23)
[2019-04-23] MEDS: Amlodipine 10 MG TAB PO SCH (11:37)
[2019-04-23] MEDS: Nicotine 14 MG PATCH TD SCH (13:03)
[2019-04-23] MEDS ORDERED: Famotidine 20 MG TAB PO PRN (13:49)
--- NOTE | 2019-04-23 14:15 | PDOC.CPN ---
- Subjective Date: 04/23/19 Time: 10:00 Interval history: EP PROGRESS NOTE: 04/23/19 Follow up for NSVT and syncope. V/Q scan found PE. - Review of Systems General: denies: fever/chills, weight/appetite/sleep changes, night sweats, fatigue Respiratory: denies: cough, congestion, shortness of breath, exercise intolerance Cardiovascular: denies: chest pain, palpitation, edema, paroxysmal nocturnal dyspnea, orthopnea Gastrointestinal: denies: nausea, vomiting, diarrhea, constipation, abd pain, GI bleeding Musculoskeletal: denies: pain, tenderness, stiffness, swelling, arthritis/ arthralgias Neurological: denies: syncope - Objective Allergies/Adverse Reactions: Allergies Allergy/AdvReac Type Severity Reaction Status Date / Time No Known Drug Allergies Allergy Verified 12/19/18 20:42 Visit Medications: Current Medications Acetaminophen (Tylenol) 650 mg PO Q4H PRN PRN Reason: Headache/Fever/Mild Pain (1-3) Last Admin: 04/23/19 03:29 Dose: 650 mg Amlodipine Besylate (Norvasc) 10 mg PO DAILY [facility] Last Admin: 04/23/19 11:37 Dose: 10 mg Atorvastatin Calcium (Lipitor) 40 mg PO HS [facility] Last Admin: 04/22/19 21:27 Dose: 40 mg Enoxaparin Sodium (Lovenox) 100 mg SC 0900,2100 [facility] Last Admin: 04/23/19 10:07 Dose: 100 mg Famotidine (Pepcid) 20 mg PO BIDPRN PRN PRN Reason: Indigestion Hydralazine HCl (Apresoline) 5 mg SLOW IVP Q15MIN PRN PRN Reason: SBP Greater Than 180 Hydrochlorothiazide (Hydrochlorothiazide) 25 mg PO DAILY [facility] Last Admin: 04/23/19 10:06 Dose: 25 mg Ceftriaxone Sodium 1 gm/ (Sodium Chloride) 100 mls @ 200 mls/hr IVPB 1000 [facility] Last Admin: 04/23/19 11:23 Dose: 100 mls Losartan Potassium (Cozaar) 100 mg PO DAILY [facility] Last Admin: 04/23/19 10:07 Dose: 100 mg Nicotine (Nicoderm Patch) 14 mg TD 1300 [facility] Last Admin: 04/23/19 13:03 Dose: Not Given Ondansetron HCl (Zofran Odt) 4 mg PO Q6H PRN PRN Reason: Nausea/Vomiting Sodium Chloride (Flush - Normal Saline) 10 ml IVF Q12HR [facility] Last Admin: 04/23/19 10:07 Dose: 10 ml Sodium Chloride (Flush - Normal Saline) 10 ml IVF PRN PRN PRN Reason: Saline Flush Vital Signs & Weight: Vital Signs Temp Pulse Resp BP BP Pulse Ox 04/23/19 11:37 72 195/80 H 04/23/19 11:30 97.9 F 62 18 195/80 H 97 04/23/19 08:00 98 04/23/19 07:40 97.9 F 63 18 186/84 H 98 04/23/19 04:15 175/86 H 04/23/19 03:31 97.9 F 67 18 194/82 H 99 Weight 221 lb - Physical Exam General: alert & oriented x3, appears well, no apparent distress HEENT: mucus membranes moist, normocephaly Neck: supple neck, midline trachea, no JVD/HJR, no masses, no bruit, no lymphadenopathy, no thromegaly Cardiac: regular rate and rhythm, no murmur, regular rate, regular rhythm Lungs: clear to auscultation, normal breath sounds, normal exam, no wheeze, rales, rhonchi Neuro: cranial nerve 2-12 intact, grossly intact, coordination normal, no lateralizing findings Abdomen: unremarkable, active bowel sounds, non-tender, no masses Extremities: no cyanosis, no clubbing, no edema - Labs Result Diagrams: 04/22/19 05:33 04/23/19 09:48 Troponin/CKMB CK-MB (CK-2) 4.7 ng/mL (0-6.6) 04/21/19 21:43 Troponin I 0.567 ng/mL (< 0.028) H* 04/22/19 00:40 - Telemetry Sinus rhythms and dysrhythmias: sinus rhythm - Assessment/Plan Assessment/Plan: 1. Syncope -1st episode -unknown etiology, likely related to PE vs reflexive hypotension. cannot rule out ventricular arrhythmias 2. DVT 3. Pulmonary embolism Requires termite treater anticoagulation for PE/DVT by primary team. Consider ischemic evaluation and/or outpatient monitoring by cardiology.
[2019-04-23] MEDS: hydrALAZINE 20 MG/ML VIAL SLOW IVP PRN ×2 (14:46→21:02)
--- NOTE | 2019-04-23 18:39 | CON ---
DATE OF CONSULTATION: 04/23/2019 PRIMARY CLAIM INSPECTOR: Roxanne Humphrey M.D. REASON FOR CONSULTATION: Nonsustained VT, possible ischemia. HISTORY OF PRESENT ILLNESS: Mrs. Stout is a very pleasant 59-year-old female, who comes to the hospital for a syncopal spell. She was diagnosed with a DVT on 04/21/2019 and a V/Q scan showed high probability of a pulmonary embolism. She actually came into the hospital after her daughter witnessed her to have a syncopal spell. She made some gagging motions and foaming at the mouth. She did this twice. She denies any major physical injuries, but her daughter saw both episodes. They are very well described on medical record. She was admitted for this and placed on telemetry. She was seen on telemetry to have a 5-beat run of a wide-complex rhythms thought to be ventricular tachycardia, so ischemic evaluation is attempted. Her troponin is also increased. Mrs. Stout did have chest pain right before her for syncopal spell, but has not had any chest pain since. PAST MEDICAL HISTORY: 1. Hypertension. 2. Hyperlipidemia. PAST SURGICAL HISTORY: Left foot surgery. FAMILY HISTORY: No early coronary artery disease. SOCIAL HISTORY: Half a pack a day smoker since age 12. Social alcohol use. No drug use. REVIEW OF SYSTEMS: A 12-point review of systems was done and was found to be negative unless stated in the history of present illness. OUTPATIENT MEDICATIONS: Include; 1. Prednisone 40 mg a day. 2. Losartan. 3. Hydrochlorothiazide 25 mg a day. 4. Vibramycin. 5. Albuterol inhaler. PHYSICAL EXAMINATION: VITAL SIGNS: Temperature 98.5, pulse 75, respiratory rate 16, sat 98% on room air, blood pressure 160/83. GENERAL: Awake, alert, oriented x3, in no distress. HEENT: Normocephalic, atraumatic. NECK: Supple. LUNGS: Clear. CARDIOVASCULAR: S1 and S2. No S3 or S4. No murmurs. ABDOMEN: Soft, positive bowel sounds. EXTREMITIES: No edema. SKIN: Warm and dry. LABORATORY DATA: Laboratory work was reviewed. White count of 9, hemoglobin 13 , hematocrit 40, and platelet count 223. Coags, D-dimer was 6.5. ABG was reviewed. Chemistries were reviewed. Creatinine 1.15. Troponin was 0.9, 0.7, 0.5. UA; 25-50 white cells, 2+ bacteria. Toxicology was all negative. Urine culture is negative. Blood cultures are negative. ASSESSMENT AND PLAN: 1. Acute pulmonary embolism. 2. Non-ST elevation myocardial infarction, likely type 2 demand ischemia given acute pulmonary embolism. 3. Syncope. May be related to the PE, however, cannot rule out cardiac ischemia completely. 4. Nonsustained ventricular tachycardia, 5 beats worth. Ischemic evaluation warranted. 5. Tobacco abuse. 6. Hypertension. PLAN: 1. Echocardiogram has already been done. Normal EF at 50% to 55% with moderate aortic insufficiency, which is the same as an echo that Dr. Humphrey did about a year ago. 2. I would agree with Dr. Tolbert to do a nuclear stress test to assess for ischemia at this time. It will be prohibitive to do heart catheterization unless emergent given the fact that she does need anticoagulation for her DVT and PE and if you were to do a heart catheterization, she would start bleeding from her insertion site. Would have to hold anticoagulation longer and she would be at high risk for complicated for further thrombus formation. Currently continue full anticoagulation. She is on Lovenox full dose. I would switch her to Eliquis eventually or Xarelto. 3. Will remain n.p.o. and do a stress test. We will likely recommend a LifeVest before just in case her syncopal spells were due to VT. Thank you for letting us participate in the care of your patient. We will follow. Job ID: [id number] [facility]
[2019-04-23] MEDS: Atorvastatin Calcium 40 MG TAB PO SCH (20:58)
--- NOTE | 2019-04-24 05:24 | PDOC.FM ---
- Subjective Subjective: Patient doing well this morning. Has slight headache. Discussed that she will have her stress test this morning, patient agreeable. Patient states she spoke with Dr. Garcia yesterday about getting a lifevest, patient agreeable. - Objective Vital Signs & Weight: Vital Signs (12 hours) Temp Pulse Resp BP BP Pulse Ox 04/24/19 04:00 99.1 F 79 16 175/71 H 99 04/23/19 23:47 99.8 F H 86 18 160/66 H 95 04/23/19 22:35 80 160/67 H 04/23/19 21:02 86 184/83 H 04/23/19 19:00 100 F H 86 16 184/83 H 94 L Weight Weight 100.244 kg I&O: 04/22/19 04/23/19 04/24/19 06:59 06:59 06:59 Intake Total 300 5320 480 Balance 300 5320 480 Result Diagrams: 04/22/19 05:33 04/23/19 09:48 EKG Reviewed by me: Yes (sinus 60s-70s) Phys Exam - Physical Examination Constitutional: NAD HEENT: moist MMs, sclera anicteric Neck: supple, full ROM Respiratory: clear to auscultation bilateral improved inspiratory effort Cardiovascular: RRR, no significant murmur Gastrointestinal: soft, non-tender Musculoskeletal: no edema, pulses present Neurological: normal sensation, moves all 4 limbs Psychiatric: normal affect, A&O x 3 Skin: no rash, normal turgor Dx/Plan (1) Syncope and collapse Code(s): R55 - SYNCOPE AND COLLAPSE Status: Acute (2) Lactic acidosis Code(s): E87.2 - ACIDOSIS Status: Acute (3) LINDA (acute kidney injury) Code(s): N17.9 - ACUTE KIDNEY FAILURE, UNSPECIFIED Status: Acute (4) UTI (urinary tract infection) Status: Acute (5) D-dimer, elevated Code(s): R79.89 - OTHER SPECIFIED ABNORMAL FINDINGS OF BLOOD CHEMISTRY Status : Acute (6) Hyperglycemia Code(s): R73.9 - HYPERGLYCEMIA, UNSPECIFIED Status: Acute (7) Atypical chest pain Code(s): R07.89 - OTHER CHEST PAIN Status: Acute (8) HLD (hyperlipidemia) Code(s): E78.5 - HYPERLIPIDEMIA, UNSPECIFIED Status: Acute (9) Hypertension Code(s): I10 - ESSENTIAL (PRIMARY) HYPERTENSION Status: Chronic (10) Sepsis Code(s): A41.9 - SEPSIS, UNSPECIFIED ORGANISM Status: Acute (11) NSTEMI (non-ST elevated myocardial infarction) Code(s): I21.4 - NON-ST ELEVATION (NSTEMI) MYOCARDIAL INFARCTION Status: Acute - Plan Plan: Patient is a 59F with PMHx of HTN, HLD admitted for sepsis due to UTI, lactic acidosis, LINDA, r/o PE, and syncope. #Syncope -patient had two witnessed episodes of syncope -had low BP recorded in the ED, BP stabilized overnight with fluids -unlikely orthostatic hypotension -possibly due to severe dehydration and low BP -possibly due to an arrhythmia -EP evaluated 04/23, appreciate recs; rec stress test with possible monitoring with outpatient study -Sami, Dr. Garcia, rec lifevest as possibility that syncope due to intermittent vtach -likely due to PE as evidenced on V/Q scan #PE, hx of DVT LLE x1.5wks -patient complained of SOB and feeling of chest pain like someone is sitting on her chest in ED -EKG nsr, t wave inversion in III and aVF -hx of DVT in LLE x 1.5 wk -ED could not get CTA due to patient's GFR -V/Q scan: large VQ mismatch involving the majority of the volume of the right upper lobe, entire anterior and apical segments, small wedge shaped perfusion defect anterior base of LLL likely involving the lingula -continue therapeutic lovenox, will try to switch to eliquis or xarelto within the next day or so -patient's oxygen saturation 95-99% on RA overnight #NSTEMI type 2 -trop 0.056>0.668>0.874>0.923>0.719>0.567 -patient had PE on V/Q scan, likely causing NSTEMI -last echo december 2018: EF 50-55%, normal L atrium, normal L ventricular size, [id number] aortic regurgitation, mild tricuspid regurgitation -echo: EF 50-55% with EA flow reversal suggestive of diastolic dysfunction, mild mitral regurgitation, sclerotic aortic valve, moderate aortic regurgitation , mild tricuspid regurgitation -cards consulted, appreciate recs ->48hrs out from NSTEMI, anticipate stress test today -will not pursue cath at this time as patient is anticoagulated for PE #LINDA -creatinine 2.21, GFR 28> creat 1.42 with fluids -Still not at baseline, but improving -Patient's BP was low, and has been responsive to fluids; likely a dehydration component -patient on maintenance fluids, continue -will continue to monitor #HTN -BP 160-184/66-67 overnight, 120/63 this am -patient is on home meds -amlodipine added 04/23 -fluids on SL -hydralazine prn #HLD -will continue home meds #Lactic Acidosis, resolved -Lactate 4.0 > 1.7 -patient had LINDA -likely due to dehydration, will continue to monitor #Sepsis due to UTI, resolved -UA +WBC, +Bacteria, +LE -received vanc and rocephin the ED -BP 61/45 and pulse 101 in ED before fluids -will continue maintenance fluids -will continue rocephin for UTI, today is day 3 -urine culture ordered, ngtd #Hyperglycemia, resolved -blood glucose 263 in ED -unsure if given amp of D50 via EMS -A1C 6.2 DVT ppx: therapeutic lovenox for known DVT/PE Diet: NPO for stress test Code: Full Dispo: inpatient for IVF, IV abx for UTI, tele monitoring for arrhythmias, stress test today; patient to get lifevest Addendum - Attending - Attending Attestation Date/Time: 04/24/19 5296 I personally evaluated the patient and discussed the management with Dr. Rey. I agree with the History, Examination, Assessment and Plan documented above with any addition or exceptions noted below. The patient is feeling well this morning. Will have a stress test today. Continue anticoagulation. Will need lifevest on discharge.
[2019-04-24] MEDS: Acetaminophen 325 MG TAB PO PRN (05:59)
[2019-04-24] MEDS: Amlodipine 10 MG TAB PO SCH (08:31)
[2019-04-24] MEDS: Enoxaparin Sodium 100 MG/ML SYRINGE SC SCH ×2 (08:32→20:49)
[2019-04-24] MEDS: Losartan 25 MG TAB PO SCH (08:32)
--- NOTE | 2019-04-24 13:34 | NM ---
Nuclear medicine cardiac SPECT stress only with EF and wall motion HISTORY: NSVT hypertension dyslipidemia smoking history Exam performed with Lexiscan protocol Patient was injected with 28.6 mCi of technetium 99m sestamibi intravenously for stress only images. FINDINGS: No scan evidence for infarct or ischemia on short axis, vertical long axis, and horizontal long axis imaging. LHR 0.35 EDV 43 mL 85% ejection fraction. Normal wall motion. IMPRESSION: Normal stress only cardiac SPECT with EF and wall motion.
[2019-04-24] MEDS: cefTRIAXone\\ROCEPHIN 1 GM in Sodium Chloride 0.9% 100 ML IVPB SCH (13:45)
[2019-04-24] MEDS: Hydrochlorothiazide 25 MG TAB PO SCH (13:45)
[2019-04-24] MEDS: Nicotine 14 MG PATCH TD SCH (13:46)
[2019-04-24] MEDS ORDERED: Regadenoson 0.4 MG/5 ML SYRINGE ONE (15:22)
--- NOTE | 2019-04-24 15:55 | PDOC.CPN ---
- Subjective Date: 04/24/19 Time: 15:54 Interval history: No new issues. Breathing mildly improved. - Review of Systems General: denies: fever/chills, weight/appetite/sleep changes, night sweats, fatigue Respiratory: denies: cough, congestion, shortness of breath, exercise intolerance Cardiovascular: denies: chest pain, palpitation, edema, paroxysmal nocturnal dyspnea, orthopnea Gastrointestinal: denies: nausea, vomiting, diarrhea, constipation, abd pain, GI bleeding Musculoskeletal: denies: pain, tenderness, stiffness, swelling, arthritis/ arthralgias Neurological: denies: numbness, syncope, seizure, weakness - Objective Allergies/Adverse Reactions: Allergies Allergy/AdvReac Type Severity Reaction Status Date / Time No Known Drug Allergies Allergy Verified 12/19/18 20:42 Visit Medications: Current Medications Acetaminophen (Tylenol) 650 mg PO Q4H PRN PRN Reason: Headache/Fever/Mild Pain (1-3) Last Admin: 04/24/19 05:59 Dose: 650 mg Amlodipine Besylate (Norvasc) 10 mg PO DAILY [facility] Last Admin: 04/24/19 08:31 Dose: 10 mg Atorvastatin Calcium (Lipitor) 40 mg PO HS [facility] Last Admin: 04/23/19 20:58 Dose: 40 mg Enoxaparin Sodium (Lovenox) 100 mg SC 0900,2100 [facility] Last Admin: 04/24/19 08:32 Dose: 100 mg Famotidine (Pepcid) 20 mg PO BIDPRN PRN PRN Reason: Indigestion Hydralazine HCl (Apresoline) 5 mg SLOW IVP Q15MIN PRN PRN Reason: SBP Greater Than 180 Last Admin: 04/23/19 21:02 Dose: 5 mg Hydrochlorothiazide (Hydrochlorothiazide) 25 mg PO DAILY [facility] Last Admin: 04/24/19 13:45 Dose: 25 mg Ceftriaxone Sodium 1 gm/ (Sodium Chloride) 100 mls @ 200 mls/hr IVPB 1000 [facility] Last Admin: 04/24/19 13:45 Dose: 100 mls Losartan Potassium (Cozaar) 100 mg PO DAILY [facility] Last Admin: 04/24/19 08:32 Dose: 100 mg Nicotine (Nicoderm Patch) 14 mg TD 1300 [facility] Last Admin: 04/24/19 13:46 Dose: Not Given Ondansetron HCl (Zofran Odt) 4 mg PO Q6H PRN PRN Reason: Nausea/Vomiting Sodium Chloride (Flush - Normal Saline) 10 ml IVF Q12HR [facility] Last Admin: 04/24/19 08:33 Dose: 10 ml Sodium Chloride (Flush - Normal Saline) 10 ml IVF PRN PRN PRN Reason: Saline Flush Vital Signs & Weight: Vital Signs Temp Pulse Resp BP BP Pulse Ox 04/24/19 12:15 97.6 F 79 20 110/67 98 04/24/19 08:31 71 149/61 H 04/24/19 08:00 96 04/24/19 07:13 98.5 F 71 18 149/61 H 96 04/24/19 05:50 120/63 04/24/19 04:00 99.1 F 79 16 175/71 H 99 Weight 221 lb - Physical Exam General: alert & oriented x3, no apparent distress HEENT: mucus membranes moist Neck: supple neck, midline trachea Cardiac: regular rate and rhythm, no murmur Lungs: clear to auscultation, no wheeze, rales, rhonchi Neuro: grossly intact Abdomen: active bowel sounds Extremities: no cyanosis, no clubbing, no edema Skin: clear Musculoskeletal: no pain - Labs Result Diagrams: 04/22/19 05:33 04/23/19 09:48 Troponin/CKMB CK-MB (CK-2) 4.7 ng/mL (0-6.6) 04/21/19 21:43 Troponin I 0.567 ng/mL (< 0.028) H* 04/22/19 00:40 - Telemetry Sinus rhythms and dysrhythmias: sinus rhythm - Assessment/Plan Assessment/Plan: 1. Syncope 2. Non sutained VT 3. NSTEMI, demand ischemia Type [address] 4. Acute DVT/PE PLAN: - Normal stress test today. - Will recommend lifevest before discharge for unexplained syncope and NSVT.
[2019-04-24] MEDS: Atorvastatin Calcium 40 MG TAB PO SCH (20:49)
--- NOTE | 2019-04-25 05:48 | PDOC.FM ---
- Subjective Subjective: Patient doing well this morning. Reportedly called her insurance company yesterday and graeme will be an affordable option for her to go home on. Discussed that patient will also go home with lifevest when it is approved, patient agreeable. Denies cp, sob, or headache this morning. - Objective Vital Signs & Weight: Vital Signs (12 hours) Temp Pulse Resp BP Pulse Ox 04/25/19 04:00 98.5 F 75 16 144/55 H 95 04/25/19 00:00 99 F 79 16 173/64 H 92 L 04/24/19 20:49 94 L 04/24/19 19:37 99.6 F 86 16 176/70 H 94 L Weight Weight 100.244 kg I&O: 04/23/19 04/24/19 04/25/19 06:59 06:59 06:59 Intake Total 5320 720 360 Output Total 1450 Balance 5320 -730 360 Result Diagrams: 04/25/19 07:55 04/25/19 07:55 EKG Reviewed by me: Yes (sinus 60s-70s) Phys Exam - Physical Examination Constitutional: NAD HEENT: moist MMs, sclera anicteric Neck: supple, full ROM poor inspiratory effort, L>R Cardiovascular: RRR, no significant murmur Gastrointestinal: soft, non-tender Musculoskeletal: pulses present Neurological: normal sensation, moves all 4 limbs Psychiatric: normal affect, A&O x 3 Skin: no rash, normal turgor Dx/Plan (1) Syncope and collapse Code(s): R55 - SYNCOPE AND COLLAPSE Status: Acute (2) Lactic acidosis Code(s): E87.2 - ACIDOSIS Status: Acute (3) LINDA (acute kidney injury) Code(s): N17.9 - ACUTE KIDNEY FAILURE, UNSPECIFIED Status: Acute (4) UTI (urinary tract infection) Status: Acute (5) D-dimer, elevated Code(s): R79.89 - OTHER SPECIFIED ABNORMAL FINDINGS OF BLOOD CHEMISTRY Status : Acute (6) Hyperglycemia Code(s): R73.9 - HYPERGLYCEMIA, UNSPECIFIED Status: Acute (7) Atypical chest pain Code(s): R07.89 - OTHER CHEST PAIN Status: Acute (8) HLD (hyperlipidemia) Code(s): E78.5 - HYPERLIPIDEMIA, UNSPECIFIED Status: Acute (9) Hypertension Code(s): I10 - ESSENTIAL (PRIMARY) HYPERTENSION Status: Chronic (10) Sepsis Code(s): A41.9 - SEPSIS, UNSPECIFIED ORGANISM Status: Acute (11) NSTEMI (non-ST elevated myocardial infarction) Code(s): I21.4 - NON-ST ELEVATION (NSTEMI) MYOCARDIAL INFARCTION Status: Acute - Plan Plan: Patient is a 59F with PMHx of HTN, HLD admitted for sepsis due to UTI, lactic acidosis, LINDA, r/o PE, and syncope. #Syncope -patient had two witnessed episodes of syncope -had low BP recorded in the ED, BP stabilized overnight with fluids -unlikely orthostatic hypotension -possibly due to severe dehydration and low BP -possibly due to an arrhythmia -EP evaluated 04/23, appreciate recs; rec stress test with possible monitoring with outpatient study -Cards, Dr. Garcia, lifevest before discharge -likely due to PE as evidenced on V/Q scan #PE, hx of DVT LLE x1.5wks -patient complained of SOB and feeling of chest pain like someone is sitting on her chest in ED -EKG nsr, t wave inversion in III and aVF -hx of DVT in LLE x 1.5 wk -ED could not get CTA due to patient's GFR -V/Q scan: large VQ mismatch involving the majority of the volume of the right upper lobe, entire anterior and apical segments, small wedge shaped perfusion defect anterior base of LLL likely involving the lingula -continue therapeutic lovenox, transition to PO eliquis today -patient's oxygen saturation 95-99% on RA overnight #NSTEMI type 2 -trop 0.056>0.668>0.874>0.923>0.719>0.567 -patient had PE on V/Q scan, likely causing NSTEMI -last echo december 2018: EF 50-55%, normal L atrium, normal L ventricular size, [id number] aortic regurgitation, mild tricuspid regurgitation -echo: EF 50-55% with EA flow reversal suggestive of diastolic dysfunction, mild mitral regurgitation, sclerotic aortic valve, moderate aortic regurgitation , mild tricuspid regurgitation -cards consulted, appreciate recs -stress test 04/24: normal -will not pursue cath at this time as patient is anticoagulated for PE #LINDA -creatinine 2.21, GFR 28> creat 1.42 with fluids -Still not at baseline, but improving -Patient's BP was low, and has been responsive to fluids; likely a dehydration component -patient on maintenance fluids, continue -will continue to monitor #HTN -BP 1144-176/55-70 overnight -patient is on home meds -amlodipine added 04/23 -fluids on SL -hydralazine prn #HLD -will continue home meds #Lactic Acidosis, resolved -Lactate 4.0 > 1.7 -patient had LINDA -likely due to dehydration, will continue to monitor #Sepsis due to UTI, resolved -UA +WBC, +Bacteria, +LE -received vanc and rocephin the ED -BP 61/45 and pulse 101 in ED before fluids -will continue maintenance fluids -rocephin for UTI 04/22-04/24 -urine culture ordered, ngtd #Hyperglycemia, resolved -blood glucose 263 in ED -unsure if given amp of D50 via EMS -A1C 6.2 DVT ppx: eliquis 10mg PO BID Diet: Code: Full Dispo: inpatient for IVF, tele monitoring for arrhythmias, transition from lovenox to eliquis today; patient to get lifevest Addendum - Attending - Attending Attestation Date/Time: 04/25/19 0709 I personally evaluated the patient and discussed the management with Dr. Rey. I agree with the History, Examination, Assessment and Plan documented above with any addition or exceptions noted below. The patient is feeling well. Stress test was negative. Changing to eliquis. Waiting on life vest to be set up and then she is stable for d/c.
[2019-04-25 08:13] LABS: Hemoglobin 12.9 g/dL (12.0-16.0); Platelet Count 345 thou/uL (130-400)
[2019-04-25 08:19] LABS: Anion Gap 17 mmol/L (10-20); BUN (Urea Nitrogen) 15 mg/dL (9.8-20.1); Calc. Creatinine Clearance 74 mL/min (70-130); Carbon Dioxide 28 mmol/L (22-29); Chloride 101 mmol/L (98-107); Estimated GFR-MDRD 50; Glucose 152 mg/dL (70-105); Potassium 3.2 mmol/L (3.5-5.1); Sodium 143 mmol/L (136-145)
[2019-04-25] MEDS: Losartan 25 MG TAB PO SCH (09:21)
[2019-04-25] MEDS: Apixaban 5 MG TAB PO SCH ×2 (09:21→22:08)
[2019-04-25] MEDS: Hydrochlorothiazide 25 MG TAB PO SCH (09:21)
[2019-04-25] MEDS: Amlodipine 10 MG TAB PO SCH (09:21)
--- NOTE | 2019-04-25 14:33 | PDOC.CPN ---
- Subjective Date: 04/25/19 Time: 14:30 Interval history: No more syncope, no other issues. No chest pain. - Review of Systems General: denies: fever/chills, weight/appetite/sleep changes, night sweats, fatigue Respiratory: denies: cough, congestion, shortness of breath, exercise intolerance Cardiovascular: denies: chest pain, palpitation, edema, paroxysmal nocturnal dyspnea, orthopnea Gastrointestinal: denies: nausea, vomiting, diarrhea, constipation, abd pain, GI bleeding Musculoskeletal: denies: pain, tenderness, stiffness, swelling, arthritis/ arthralgias Neurological: denies: numbness, syncope, seizure, weakness - Objective Allergies/Adverse Reactions: Allergies Allergy/AdvReac Type Severity Reaction Status Date / Time No Known Drug Allergies Allergy Verified 12/19/18 20:42 Visit Medications: Current Medications Acetaminophen (Tylenol) 650 mg PO Q4H PRN PRN Reason: Headache/Fever/Mild Pain (1-3) Last Admin: 04/24/19 05:59 Dose: 650 mg Amlodipine Besylate (Norvasc) 10 mg PO DAILY [facility] Last Admin: 04/25/19 09:21 Dose: 10 mg Apixaban (Eliquis) 10 mg PO BID [facility] Last Admin: 04/25/19 09:21 Dose: 10 mg Atorvastatin Calcium (Lipitor) 40 mg PO HS [facility] Last Admin: 04/24/19 20:49 Dose: 40 mg Famotidine (Pepcid) 20 mg PO BIDPRN PRN PRN Reason: Indigestion Hydralazine HCl (Apresoline) 5 mg SLOW IVP Q15MIN PRN PRN Reason: SBP Greater Than 180 Last Admin: 04/23/19 21:02 Dose: 5 mg Hydrochlorothiazide (Hydrochlorothiazide) 25 mg PO DAILY [facility] Last Admin: 04/25/19 09:21 Dose: 25 mg Losartan Potassium (Cozaar) 100 mg PO DAILY [facility] Last Admin: 04/25/19 09:21 Dose: 100 mg Nicotine (Nicoderm Patch) 14 mg TD 1300 [facility] Last Admin: 04/24/19 13:46 Dose: Not Given Ondansetron HCl (Zofran Odt) 4 mg PO Q6H PRN PRN Reason: Nausea/Vomiting Sodium Chloride (Flush - Normal Saline) 10 ml IVF Q12HR [facility] Last Admin: 04/25/19 09:22 Dose: 10 ml Sodium Chloride (Flush - Normal Saline) 10 ml IVF PRN PRN PRN Reason: Saline Flush Vital Signs & Weight: Vital Signs Temp Pulse Resp BP BP Pulse Ox 04/25/19 11:56 98.5 F 73 16 123/68 96 04/25/19 09:21 74 159/68 H 04/25/19 08:00 98.8 F 70 16 159/68 H 92 L 04/25/19 04:00 98.5 F 75 16 144/55 H 95 Weight 221 lb - Physical Exam General: alert & oriented x3, no apparent distress HEENT: mucus membranes moist Neck: supple neck, midline trachea Cardiac: regular rate and rhythm, no murmur Lungs: clear to auscultation Neuro: grossly intact Abdomen: active bowel sounds, soft, non-tender Extremities: no edema Skin: clear Musculoskeletal: no pain - Labs Result Diagrams: 04/25/19 07:55 04/25/19 07:55 Troponin/CKMB CK-MB (CK-2) 4.7 ng/mL (0-6.6) 04/21/19 21:43 Troponin I 0.567 ng/mL (< 0.028) H* 04/22/19 00:40 - Telemetry Sinus rhythms and dysrhythmias: sinus rhythm - Assessment/Plan Assessment/Plan: 1. Syncope 2. Non sutained VT 3. NSTEMI, demand ischemia Type 2 AR 4. Acute DVT/PE PLAN: - Normal stress test. - Lifevest before discharge for unexplained syncope and NSVT, high risk for VT arrest. - Family called her insurance and Eliquis is covered by insurance, Switch to PO Eliquis for DVT/PE treatment.
[2019-04-25] MEDS: Nicotine 14 MG PATCH TD SCH (15:15)
[2019-04-25] MEDS: Atorvastatin Calcium 40 MG TAB PO SCH (22:08)
[2019-04-25] MEDS: Acetaminophen 325 MG TAB PO PRN (22:12)
--- NOTE | 2019-04-26 05:20 | PDOC.FM ---
- Subjective Subjective: Patient doing well this morning. Denies cp, sob. Discussed lifevest with Dr. Garcia, agreeable to plan of care. States that her sister has one so she is familiar with them. - Objective Vital Signs & Weight: Vital Signs (12 hours) Temp Pulse Resp BP Pulse Ox 04/26/19 00:00 98.2 F 79 16 141/78 H 92 L 04/25/19 19:36 98.5 F 81 16 145/72 H 95 Weight Weight 100.244 kg I&O: 04/24/19 04/25/19 04/26/19 06:59 06:59 06:59 Intake Total 720 840 720 Output Total 1450 Balance -730 840 720 Result Diagrams: 04/25/19 07:55 04/25/19 07:55 Phys Exam - Physical Examination Constitutional: NAD HEENT: moist MMs, sclera anicteric Neck: supple, full ROM improved inspiratory effort Cardiovascular: RRR, no significant murmur Gastrointestinal: soft, non-tender Musculoskeletal: no edema, pulses present Neurological: normal sensation, moves all 4 limbs Psychiatric: normal affect, A&O x 3 Skin: no rash, normal turgor Dx/Plan (1) Syncope and collapse Code(s): R55 - SYNCOPE AND COLLAPSE Status: Acute (2) Lactic acidosis Code(s): E87.2 - ACIDOSIS Status: Acute (3) LINDA (acute kidney injury) Code(s): N17.9 - ACUTE KIDNEY FAILURE, UNSPECIFIED Status: Acute (4) UTI (urinary tract infection) Status: Acute (5) D-dimer, elevated Code(s): R79.89 - OTHER SPECIFIED ABNORMAL FINDINGS OF BLOOD CHEMISTRY Status : Acute (6) Hyperglycemia Code(s): R73.9 - HYPERGLYCEMIA, UNSPECIFIED Status: Acute (7) Atypical chest pain Code(s): R07.89 - OTHER CHEST PAIN Status: Acute (8) HLD (hyperlipidemia) Code(s): E78.5 - HYPERLIPIDEMIA, UNSPECIFIED Status: Acute (9) Hypertension Code(s): I10 - ESSENTIAL (PRIMARY) HYPERTENSION Status: Chronic (10) Sepsis Code(s): A41.9 - SEPSIS, UNSPECIFIED ORGANISM Status: Acute (11) NSTEMI (non-ST elevated myocardial infarction) Code(s): I21.4 - NON-ST ELEVATION (NSTEMI) MYOCARDIAL INFARCTION Status: Acute - Plan Plan: Patient is a 59F with PMHx of HTN, HLD admitted for sepsis due to UTI, lactic acidosis, LINDA, r/o PE, and syncope. #Syncope -patient had two witnessed episodes of syncope -had low BP recorded in the ED, BP stabilized overnight with fluids -unlikely orthostatic hypotension -possibly due to severe dehydration and low BP -possibly due to an arrhythmia -EP evaluated 04/23, appreciate recs; rec stress test with possible monitoring with outpatient study -Cards, Dr. Garcia, lifevest before discharge -likely due to PE as evidenced on V/Q scan #PE, hx of DVT LLE x1.5wks -patient complained of SOB and feeling of chest pain like someone is sitting on her chest in ED -EKG nsr, t wave inversion in III and aVF -hx of DVT in LLE x 1.5 wk -ED could not get CTA due to patient's GFR -V/Q scan: large VQ mismatch involving the majority of the volume of the right upper lobe, entire anterior and apical segments, small wedge shaped perfusion defect anterior base of LLL likely involving the lingula -continue PO eliquis -patient's oxygen saturation 92-96% on RA overnight #NSTEMI type 2 -trop 0.056>0.668>0.874>0.923>0.719>0.567 -patient had PE on V/Q scan, likely causing NSTEMI -last echo december 2018: EF 50-55%, normal L atrium, normal L ventricular size, [id number] aortic regurgitation, mild tricuspid regurgitation -echo: EF 50-55% with EA flow reversal suggestive of diastolic dysfunction, mild mitral regurgitation, sclerotic aortic valve, moderate aortic regurgitation , mild tricuspid regurgitation -cards consulted, appreciate recs -stress test 04/24: normal -will not pursue cath at this time as patient is anticoagulated for PE #LINDA -creatinine 2.21, GFR 28> creat 1.42 with fluids -Still not at baseline, but improving -Patient's BP was low, and has been responsive to fluids; likely a dehydration component -will continue to monitor #HTN -BP 123-145/71-81 overnight -patient is on home meds -amlodipine added 04/23 -fluids on SL -hydralazine prn #HLD -will continue home meds #Lactic Acidosis, resolved -Lactate 4.0 > 1.7 -patient had LINDA -likely due to dehydration, will continue to monitor #Sepsis due to UTI, resolved -UA +WBC, +Bacteria, +LE -received vanc and rocephin the ED -BP 61/45 and pulse 101 in ED before fluids -will continue maintenance fluids -rocephin for UTI 04/22-04/24 -urine culture ordered, ngtd #Hyperglycemia, resolved -blood glucose 263 in ED -unsure if given amp of D50 via EMS -A1C 6.2 DVT ppx: eliquis 10mg PO BID Diet: HH Code: Full Dispo: inpatient for IVF, tele monitoring for arrhythmias, on eliquis; patient to get lifevest Addendum - Attending - Attending Attestation Date/Time: 04/26/19 1204 I personally evaluated the patient and discussed the management with Dr. Rey. I agree with the History, Examination, Assessment and Plan documented above with any addition or exceptions noted below. Patient remains stable. Arranging for life vest then stable for discharge.
[2019-04-26] MEDS: Hydrochlorothiazide 25 MG TAB PO SCH (08:44)
[2019-04-26] MEDS: Amlodipine 10 MG TAB PO SCH (08:44)
[2019-04-26] MEDS: Apixaban 5 MG TAB PO SCH (08:44)
[2019-04-26] MEDS: Losartan 25 MG TAB PO SCH (08:44)
--- NOTE | 2019-04-26 14:34 | PDOC.CPN ---
- Subjective Date: 04/26/19 Time: 14:42 Interval history: The pt seen and examined. No overnight events. No cardiac complaints. - Objective Allergies/Adverse Reactions: Allergies Allergy/AdvReac Type Severity Reaction Status Date / Time No Known Drug Allergies Allergy Verified 12/19/18 20:42 Visit Medications: Current Medications Acetaminophen (Tylenol) 650 mg PO Q4H PRN PRN Reason: Headache/Fever/Mild Pain (1-3) Last Admin: 04/25/19 22:12 Dose: 650 mg Amlodipine Besylate (Norvasc) 10 mg PO DAILY [facility] Last Admin: 04/26/19 08:44 Dose: 10 mg Apixaban (Eliquis) 10 mg PO BID [facility] Last Admin: 04/26/19 08:44 Dose: 10 mg Atorvastatin Calcium (Lipitor) 40 mg PO HS [facility] Last Admin: 04/25/19 22:08 Dose: 40 mg Famotidine (Pepcid) 20 mg PO BIDPRN PRN PRN Reason: Indigestion Hydralazine HCl (Apresoline) 5 mg SLOW IVP Q15MIN PRN PRN Reason: SBP Greater Than 180 Last Admin: 04/23/19 21:02 Dose: 5 mg Hydrochlorothiazide (Hydrochlorothiazide) 25 mg PO DAILY [facility] Last Admin: 04/26/19 08:44 Dose: 25 mg Losartan Potassium (Cozaar) 100 mg PO DAILY [facility] Last Admin: 04/26/19 08:44 Dose: 100 mg Nicotine (Nicoderm Patch) 14 mg TD 1300 [facility] Last Admin: 04/25/19 15:15 Dose: Not Given Ondansetron HCl (Zofran Odt) 4 mg PO Q6H PRN PRN Reason: Nausea/Vomiting Sodium Chloride (Flush - Normal Saline) 10 ml IVF Q12HR [facility] Last Admin: 04/26/19 08:45 Dose: Not Given Sodium Chloride (Flush - Normal Saline) 10 ml IVF PRN PRN PRN Reason: Saline Flush Vital Signs & Weight: Vital Signs Temp Pulse Resp BP BP Pulse Ox 04/26/19 12:00 98.3 F 69 16 152/59 H 100 04/26/19 08:50 99 04/26/19 08:44 71 120/67 04/26/19 07:53 98 F 76 16 120/67 99 04/26/19 04:00 98.3 F 70 16 131/70 94 L Weight 221 lb - Physical Exam General: alert & oriented x3 HEENT: mucus membranes moist Neck: supple neck Cardiac: regular rate and rhythm, S1/S2 Lungs: clear to auscultation Neuro: cranial nerve 2-12 intact Extremities: no cyanosis Skin: clear Musculoskeletal: normal range of motion - Labs Result Diagrams: 04/25/19 07:55 04/25/19 07:55 Troponin/CKMB CK-MB (CK-2) 4.7 ng/mL (0-6.6) 04/21/19 21:43 Troponin I 0.567 ng/mL (< 0.028) H* 04/22/19 00:40 - Telemetry Sinus rhythms and dysrhythmias: sinus rhythm - Assessment/Plan Assessment/Plan: 1. Syncope - will d/c with 30 day EVR 2. Non sutained VT - normal stress test; will d/c with 30 day EVR 3. Type 2 VT - 4. Acute DVT/PE - on Eliquis 10 mg BID (since 04/24/2019) for 7 days and change to 5mg BID from 8th day (managed by PCP) 5. HTN - stable with current meds 6. current smoker - strongly recommend smoking cessation; MAR reviewed * From Cardiac standpoint, the pt is stable to d/c home once she receives 30- day EVR. Pt. seen and eval. by me. I agree with th A/P by the [facility]. See my note in the chart. f/U with me in 1 month or sooner if further events.
[2019-04-26] MEDS: Nicotine 14 MG PATCH TD SCH (15:32)
[2019-04-26 16:15] VITALS: BP 121/68; TEMP 98.5
--- NOTE | 2019-04-26 17:06 | PDOC.CPN ---
- Subjective Date: 04/26/19 Time: 17:05 Interval history: EP PROGRESS NOTE: 04/26/19 Follow up for NSVT and syncope. V/Q scan found PE. nO FURHTER VT. CONTIUES TO BE ASYMPTOMATIC - Review of Systems General: denies: fever/chills, weight/appetite/sleep changes, night sweats, fatigue Respiratory: denies: cough, congestion, shortness of breath, exercise intolerance Gastrointestinal: denies: nausea, vomiting, diarrhea, constipation, abd pain, GI bleeding Musculoskeletal: denies: pain, tenderness, stiffness, swelling, arthritis/ arthralgias - Objective Allergies/Adverse Reactions: Allergies Allergy/AdvReac Type Severity Reaction Status Date / Time No Known Drug Allergies Allergy Verified 12/19/18 20:42 Visit Medications: Current Medications Acetaminophen (Tylenol) 650 mg PO Q4H PRN PRN Reason: Headache/Fever/Mild Pain (1-3) Last Admin: 04/25/19 22:12 Dose: 650 mg Amlodipine Besylate (Norvasc) 10 mg PO DAILY [facility] Last Admin: 04/26/19 08:44 Dose: 10 mg Apixaban (Eliquis) 10 mg PO BID [facility] Last Admin: 04/26/19 08:44 Dose: 10 mg Atorvastatin Calcium (Lipitor) 40 mg PO HS [facility] Last Admin: 04/25/19 22:08 Dose: 40 mg Famotidine (Pepcid) 20 mg PO BIDPRN PRN PRN Reason: Indigestion Hydralazine HCl (Apresoline) 5 mg SLOW IVP Q15MIN PRN PRN Reason: SBP Greater Than 180 Last Admin: 04/23/19 21:02 Dose: 5 mg Hydrochlorothiazide (Hydrochlorothiazide) 25 mg PO DAILY [facility] Last Admin: 04/26/19 08:44 Dose: 25 mg Losartan Potassium (Cozaar) 100 mg PO DAILY [facility] Last Admin: 04/26/19 08:44 Dose: 100 mg Nicotine (Nicoderm Patch) 14 mg TD 1300 [facility] Last Admin: 04/26/19 15:32 Dose: Not Given Ondansetron HCl (Zofran Odt) 4 mg PO Q6H PRN PRN Reason: Nausea/Vomiting Sodium Chloride (Flush - Normal Saline) 10 ml IVF Q12HR [facility] Last Admin: 04/26/19 08:45 Dose: Not Given Sodium Chloride (Flush - Normal Saline) 10 ml IVF PRN PRN PRN Reason: Saline Flush Vital Signs & Weight: Vital Signs Temp Pulse Resp BP BP Pulse Ox 04/26/19 16:00 98.5 F 71 16 121/68 95 04/26/19 12:00 98.3 F 69 16 152/59 H 100 04/26/19 08:50 99 04/26/19 08:44 71 120/67 04/26/19 07:53 98 F 76 16 120/67 99 Weight 221 lb - Physical Exam General: no apparent distress - Labs Result Diagrams: 04/25/19 07:55 04/25/19 07:55 Troponin/CKMB CK-MB (CK-2) 4.7 ng/mL (0-6.6) 04/21/19 21:43 Troponin I 0.567 ng/mL (< 0.028) H* 04/22/19 00:40 - Assessment/Plan Assessment/Plan: 1. Syncope -1st episode -unknown etiology, likely related to PE vs reflexive hypotension. 2. Non sustained VT. Monomorphic. No recurrence - Normal LVEF with negative stress test. Prognosis is benign. Continue BB 3. Mild QT prolongation. 4. DVT/Pulmonary embolism. On OAC. Likely cause of CP and mild elevation of troponins on presentation. Requires jail anticoagulation for PE/DVT by primary team. Consider outpatient monitoring. Discussed with Dr Denton.
--- NOTE | 2019-04-27 10:40 | DIS ---
DATE OF ADMISSION: 04/21/2019 DATE OF DISCHARGE: 04/26/2019 ADMITTING RESIDENT: Bee Rey MD. ADMITTING ATTENDING: Jaqui Lozada MD. DISCHARGE ATTENDING: Giovanna Carter MD. DISCHARGE RESIDENT: Bee Rey MD CONSULTS: Cardiology (Dr. Garcia), Case Management, Electrophysiology (Dr. Tolbert ). PROCEDURES: 1. Stress test: Normal. 2. Imaging: Echo; EF 50% to 55%, E/A flow reversal noted suggestive of diastolic dysfunction, mild mitral regurgitation, sclerotic aortic valve, moderate aortic regurgitation, mild tricuspid regurgitation. 3. Chest x-ray: No acute intrathoracic disease. 4. Brain CT: No acute intracranial hemorrhage or infarct; multifocal encephalomalacia, superimposed on microvascular ischemic disease of the cerebral white matter. 5. Venogram: Evidence of left lower extremity DVT. 6. V/Q scan: High probability of pulmonary embolism; large region of pulmonary nonperfusion, involving majority of the right upper lobe; much smaller wedge- shaped perfusion defect at the anterior base in left lower lobe, probably involving the lingula. PRIMARY DIAGNOSES: syncope, pulmonary embolism, [id number] myocardial infarction type 2; acute kidney injury; lactic acidosis, resolved; sepsis due to urinary tract infection, resolved; hypercholesterolemia, resolved. SECONDARY DIAGNOSES: History of deep venous thrombosis, hypertension, hyperlipidemia. DISCHARGE MEDICATIONS: 1. 2 puff Albuterol sulfate inhaled q.4 hours p.r.n. 2. 10 mg of amlodipine p.o. daily. 3. 10 mg of Eliquis p.o. b.i.d. with last day 05/01/2019, beginning 5 mg Eliquis p.o. b.i.d. beginning 05/02/2019. 4. 40 mg of atorvastatin p.o. at bedtime. 5. 25 mg of hydrochlorothiazide p.o. daily. 6. 100 mg of losartan p.o. daily. DISCONTINUED MEDICATIONS: Lovenox. HISTORY OF PRESENT ILLNESS/HOSPITAL COURSE: The patient is a 59-year-old female with past medical history of hypertension, hyperlipidemia, recent history of left lower extremity DVT workup that was admitted for a syncope workup that included a V/Q scan, which showed a PE, see above. She was also found to have an NSTEMI type 2. The patient was started on therapeutic Lovenox for PE, and Cardiology consulted for her NSTEMI type 2. She had an echo and stress test, see above. She was monitored on telemetry and one night, was found to have four beats of V-tach and 7 beats wide-complex tachycardia. EP was consulted, recommended stress test and outpatient monitoring. Cardiology was also consulted and recommended therapeutic anticoagulation with Eliquis and a LifeVest. Per the [employer] company the patient did not qualify, so an event recorder was installed before discharge. Throughout the hospitalization, the patient's vital signs remained stable, and she denied chest pain or shortness of breath. Her respiratory exam had improved by discharge. She was hypertensive at the beginning of the hospital stay and amlodipine was added to her daily regimen, with her blood pressure becomes stable by discharge. The patient was found to have an LINDA and UTI on admission. She was treated with 3 days of Rocephin and IV fluids, with LINDA resolution by discharge. The patient had a glucose of 263 upon admission, A1c checked and it was 6.2%. The patient was transitioned from therapeutic Lovenox to 10 mg of Eliquis p.o. b.i.d. on 04/25/2019 with recommendations for the patient to continue the dosing with the last day of 05/01/2019, and then to start 5 mg of Eliquis p.o. b.i.d. on 05/02/2019. The patient had an event recorder placed before discharge, with clear instructions to send it in after 30 days. The patient was agreeable with the current plan of care, was discharged on p.o. Eliquis to follow up with PCP within 1 week. DISPOSITION: Stable. DISCHARGE INSTRUCTIONS: 1. Location: Home. 2. Diet: Heart healthy. 3. Activity: As tolerated. 4. Follow up with PCP within 1 week and to send in event recorder after 30 days. Job ID: [id number] [facility] CLINICEricka
== END 2019-04-26 17:08 | disposition home or self-care (01) | DRG 871 ==
LOC: ERS 07:55 → 2SE 12:28
PROVIDERS: ADMIT Family Medicine; ATTEND Family Medicine
DX: A41.9 Sepsis, unspecified organism (principal); I26.99 Other pulmonary embolism without acute cor pulmonale; I21.A1 Myocardial infarction type 2; N17.9 Acute kidney failure, unspecified; E87.2 Acidosis; I47.2 Ventricular tachycardia; I82.412 Acute embolism and thrombosis of left femoral vein; I82.432 Acute embolism and thrombosis of left popliteal vein; E78.00 Pure hypercholesterolemia, unspecified; E78.5 Hyperlipidemia, unspecified; I10 Essential (primary) hypertension; E86.0 Dehydration; R73.9 Hyperglycemia, unspecified; I08.3 Combined rheumatic disorders of mitral, aortic and tricuspid valves; I45.81 Long QT syndrome; Z86.718 Personal history of other venous thrombosis and embolism; Z79.899 Other long term (current) drug therapy
CPT/HCPCS: 36415; 51701; 70450; 71045; 78452; 78582; 80048; 80053; 80306; 80307; 81003; 81015; 82550; 82553; 82805; 83036; 83605; 83690; 83880; 84146; 84484; 85014; 85018; 85025; 85049; 85379; 87040; 87086; 93005; 93010; 93017; 93306; 93970; 96361; 96365; 96367; 96372; A9500; A9540; A9558; J0360; J0696; J1650; J2785; J3370; J3490

== ENCOUNTER 2019-07-19 12:43 | Outpatient (CLI) | payer MEDICARE ==
--- NOTE | 2019-07-19 14:24 | RAD ---
CHEST 2 VIEWS: Date: 07/19/2019 INDICATION: History of dyspnea. COMPARISON: Prior exam dated 04/21/2019. FINDINGS: Lungs are clear. Heart size normal. No acute osseous abnormality evident. IMPRESSION: No acute cardiopulmonary abnormality. POS: CET
== END 2019-07-19 12:44 | disposition home or self-care (01) ==
LOC: RAD 12:43
PROVIDERS: ATTEND Internal Medicine Pulmonary Disease
DX: R06.00 Dyspnea, unspecified (principal)
CPT/HCPCS: 71046

== ENCOUNTER 2019-12-20 07:56 | Outpatient (CLI) | payer MEDICARE ==
--- NOTE | 2019-12-20 08:25 | MMO ---
Bilateral MAMMO Bilat Screen [facility]. CLINICAL HISTORY: Patient is 59 years old and is seen for screening. The patient has the following family history of breast cancer: cousin female. The patient has no personal history of cancer. VIEWS: The views performed were: bilateral craniocaudal with tomosynthesis and bilateral mediolateral oblique with tomosynthesis. FILMS COMPARED: The present examination has been compared to prior imaging studies performed at [facility] on 11/29/2015, 12/13/2016, 12/15/2017 and 12/16/2018. This study has been interpreted with the assistance of computer-aided detection. MAMMOGRAM FINDINGS: There are scattered fibroglandular densities. Finding 1: There are stable benign appearing calcifications seen in both breasts. Finding 2: There is a stable intramammary lymph node seen in the left breast. There are no suspicious masses, suspicious calcifications, or new areas of architectural distortion. IMPRESSION: THERE IS NO MAMMOGRAPHIC EVIDENCE OF MALIGNANCY. A ROUTINE FOLLOW-UP MAMMOGRAM IN 1 YEAR IS RECOMMENDED. THE RESULTS OF THIS EXAM WERE SENT TO THE PATIENT. ACR BI-RADS Category 2 - Benign finding MAMMOGRAPHY NOTE: 1. A negative mammogram report should not delay a biopsy if a dominant of clinically suspicious mass is present. 2. Approximately 10% to 15% of breast cancers are not detected by mammography. 3. Adenosis and dense breasts may obscure an underlying neoplasm. Reported by: FATIMAH BARRON MD Electonically Signed: [id number]
== END 2019-12-20 07:57 | disposition home or self-care (01) ==
LOC: BICMAMMO 07:56
PROVIDERS: ATTEND Family Medicine
DX: Z12.31 Encounter for screening mammogram for malignant neoplasm of breast (principal); Z80.3 Family history of malignant neoplasm of breast
CPT/HCPCS: 77063; 77067

== ENCOUNTER 2020-08-31 10:51 | Outpatient (CLI) | payer MEDICARE | END 2020-08-31 10:52 | disposition home or self-care (01) | LOC: BICRAD 10:51 | PROVIDERS: ATTEND Student in an Organized Health Care Education/Training Program | DX: M25.541 Pain in joints of right hand (principal) ==

== ENCOUNTER 2021-12-31 09:32 | Outpatient (CLI) | payer MEDICARE | END 2021-12-31 09:33 | disposition home or self-care (01) | LOC: BICMAMMO 09:32 | PROVIDERS: ATTEND Student in an Organized Health Care Education/Training Program | DX: Z12.31 Encounter for screening mammogram for malignant neoplasm of breast (principal); Z80.3 Family history of malignant neoplasm of breast | CPT/HCPCS: 77063; 77067 ==

== ENCOUNTER 2023-01-14 10:57 | Outpatient (CLI) | payer MEDICARE | END 2023-01-14 10:58 | disposition home or self-care (01) | LOC: BICMAMMO 10:57 | PROVIDERS: ATTEND Student in an Organized Health Care Education/Training Program | DX: Z12.31 Encounter for screening mammogram for malignant neoplasm of breast (principal); Z80.3 Family history of malignant neoplasm of breast | CPT/HCPCS: 77063; 77067 ==

== ENCOUNTER 2024-05-02 07:34 | Emergency (ER) | payer MEDICARE | END 2024-05-02 10:20 | disposition home or self-care (01) | LOC: ERS 07:34 | DX: L73.9 Follicular disorder, unspecified (principal); I10 Essential (primary) hypertension; E78.5 Hyperlipidemia, unspecified; F17.210 Nicotine dependence, cigarettes, uncomplicated; Z79.899 Other long term (current) drug therapy | CPT/HCPCS: 99282 ==